=== PATIENT | female | born 1950 | race Caucasian/White ===

== ENCOUNTER → 2019-09-05 14:21 | Outpatient (BNVA) | payer MEDICARE, OTHER, SELFPAY | PROVIDERS: Family Provider Family Medicine; PCP Family Medicine; Visit Provider Specialist | DX: G43.711 Chronic migraine without aura, intractable, with status migrainosus (principal) | CPT/HCPCS: 64615; J0585 ==

== ENCOUNTER → 2019-10-03 11:05 | Outpatient (BNVA) | payer MEDICARE, OTHER, SELFPAY | PROVIDERS: Family Provider Family Medicine; PCP Family Medicine; Referring Provider Family Medicine; Visit Provider Podiatrist Foot & Ankle Surgery | DX: M79.671 Pain in right foot (principal); M21.611 Bunion of right foot | CPT/HCPCS: 73630; L3031 ==

== ENCOUNTER 2019-10-03 12:03 | Outpatient (CLI) | payer MEDICARE, OTHER, SELFPAY | END 2019-10-03 12:04 | disposition home or self-care (01) | LOC: SPT 12:04 | PROVIDERS: Family Provider Family Medicine; Visit Provider Podiatrist Foot & Ankle Surgery | DX: Z46.89 Encounter for fitting and adjustment of other specified devices (principal); S92.411D Displaced fracture of proximal phalanx of right great toe, subsequent encounter for fracture with routine healing; X58.XXXD Exposure to other specified factors, subsequent encounter | CPT/HCPCS: L3031 ==

== ENCOUNTER 2019-10-17 12:17 | Outpatient (CLI) | payer MEDICARE, OTHER, SELFPAY ==
--- NOTE | 2019-10-17 13:30 | USCV_ITS ---
Lilo Adame Age: 68 Gender: F : 1950 Exam Date: 10/17/2019 12:58 Ordering Phys: Eric Suarez MD ([email or web address]) Technologist: Rosaura Rollins Exam Location: [facility] [place] Indication: NONISHEMIC CARDIOMYOPATHY WITH CHF BP: / HR: 80 Rhythm: Sinus Technical Quality: Adequate MEASUREMENTS (Male / Female) Normal Values 2D ECHO LV Diastolic Diameter PLAX 6.4 cm 4.2 - 5.9 / 3.9 - 5.3 cm LV Systolic Diameter PLAX 5.5 cm LV Chamber Size 5.3 cm IVS Diastolic Thickness 0.9 cm 0.6 - 1.0 / 0.6 - 0.9 cm IVS Systolic Thickness 1.2 cm LVPW Diastolic Thickness 1.2 cm 0.6 - 1.0 / 0.6 - 0.9 cm LVPW Systolic Thickness 1.3 cm RV Chamber Size 2.7 cm LVOT Diameter 2.0 cm LV Ejection Fraction 2D Teich 29.2 % LV Ejection Fraction MOD 2C -8.6 % LV Ejection Fraction 2C AL -12.0 % LA Diameter 4.3 cm LA Width 3.5 cm LA Height 4.2 cm RA Width 4.2 cm RA Height 3.1 cm Aorta at Sinotubular Diameter 3.5 cm M-MODE LV Diastolic Diameter MM 6.6 cm 4.2 - 5.9 / 3.9 - 5.3 cm LV Systolic Diameter MM 4.9 cm LV Ejection Fraction MM Teich 50.0 % IVS Diastolic Thickness MM 1.1 cm 0.6 - 1.0 / 0.6 - 0.9 cm IVS Systolic Thickness MM 1.1 cm LVPW Diastolic Thickness MM 0.9 cm 0.6 - 1.0 / 0.6 - 0.9 cm LVPW Systolic Thickness MM 1.4 cm RV Diastolic Diameter MM 1.9 cm Aortic Annulus Diameter 3.6 cm LA Ao Ratio MM 1.2 MV E Point Septal Separation 1.7 cm DOPPLER AV Peak Velocity 84.0 cm/s LVOT Peak Velocity 58.0 cm/s AV Area Cont Eq vti 2.2 cm squared AV Area Cont Eq pk 2.2 cm squared MV Area PHT 5.6 cm squared Mitral E to A Ratio 1.7 MV E' Velocity 5.0 cm/s Mitral E to MV E' Ratio 16.4 Mitral E to LV E' Lateral Ratio 18.2 Mitral E to LV E' Septal Ratio 15.2 TR Peak Velocity 240.4 cm/s TR Peak Gradient 23.1 mmHg TR Mean Velocity 187.1 cm/s TR Mean Gradient 15.5 mmHg TR Velocity Time Integral 78.7 cm TV Peak E Velocity 69.0 cm/s Right Atrial Pressure 3.0 mmHg Pulmonary Artery Systolic Pressu 26.1 mmHg PV Peak Velocity 40.0 cm/s RV Acceleration Time 0.1 s RV Ejection Time 0.2 s RV AcT/ET 0.5 FINDINGS Left Ventricle Severely increased left ventricular cavity size. Normal left ventricular wall thickness. Severely decreased left ventricular systolic function. Global left ventricular hypokinesis. Grade II/IV diastolic dysfunction, moderately elevated filling pressures. Left ventricular ejection fraction is estimated at 15-20 %. Right Ventricle Normal right ventricular size and systolic function. Normal right ventricular systolic pressure. Right Atrium The right atrium is normal in size. Left Atrium Severely increased left atrial size. Mitral Valve Structurally normal mitral valve. There is at least moderate mitral regurgitation. Aortic Valve Structurally normal aortic valve without significant sclerosis or stenosis. There is no aortic regurgitation. Tricuspid Valve Structurally normal tricuspid valve. Trace to mild tricuspid valve regurgitation. Pulmonic Valve Pulmonic valve not well visualized. Pericardium Normal pericardium without effusion. Aorta Normal ascending aorta dimension. CONCLUSIONS Severely increased left ventricular cavity size. Normal left ventricular wall thickness. Severely decreased left ventricular systolic function. Global left ventricular hypokinesis. Grade II/IV diastolic dysfunction, moderately elevated filling pressures. Left ventricular ejection fraction is estimated at 15-20 %. Severely increased left atrial size. Structurally normal mitral valve. There is at least moderate mitral regurgitation. Dr. Eric Suarez MD (Electronically Signed) Final Date: 17 October 2019 15:29 S
== END 2019-10-17 12:18 | disposition home or self-care (01) ==
LOC: US 12:18
PROVIDERS: Family Provider Family Medicine; Visit Provider Internal Medicine Cardiovascular Disease
DX: I42.8 Other cardiomyopathies (principal); I51.7 Cardiomegaly; I34.0 Nonrheumatic mitral (valve) insufficiency
CPT/HCPCS: 93306

== ENCOUNTER → 2019-11-28 13:51 | Outpatient (BNVA) | payer MEDICARE, OTHER, SELFPAY | PROVIDERS: Family Provider Family Medicine; Visit Provider Specialist | DX: G43.711 Chronic migraine without aura, intractable, with status migrainosus (principal) | CPT/HCPCS: 64615; J0585 ==

== ENCOUNTER 2019-12-25 11:56 | Outpatient (CLI) | payer MEDICARE, OTHER, SELFPAY ==
--- NOTE | 2019-12-25 12:45 | USCV_ITS ---
Lilo Adame Age: 68 Gender: F : 1950 Exam Date: 12/25/2019 12:06 Ordering Phys: Eric Suarez MD ([email or web address]) Technologist: Rosaura Rollins [place]am [place] [facility] [place] Indication: ECHO F/U CARDIOMYOPATHY BP: / HR: 85 Rhythm: Sinus Technical Quality: Good MEASUREMENTS (Male / Female) Normal Values 2D ECHO LV Diastolic Diameter PLAX 6.1 cm 4.2 - 5.9 / 3.9 - 5.3 cm LV Systolic Diameter PLAX 5.3 cm LV Chamber Size 4.0 cm IVS Diastolic Thickness 1.2 cm 0.6 - 1.0 / 0.6 - 0.9 cm IVS Systolic Thickness 6.5 cm LVPW Diastolic Thickness 1.2 cm 0.6 - 1.0 / 0.6 - 0.9 cm LVPW Systolic Thickness 1.4 cm RV Chamber Size 2.9 cm LVOT Diameter 2.1 cm LV Ejection Fraction 2D Teich 29.7 % LV Ejection Fraction MOD 2C 52.9 % LV Ejection Fraction 2C AL 54.9 % LA Diameter 2.4 cm LA Width 3.4 cm LA Height 3.2 cm RA Width 3.2 cm RA Height 3.2 cm Aorta at Sinotubular Diameter 2.5 cm M-MODE LV Diastolic Diameter MM 6.1 cm 4.2 - 5.9 / 3.9 - 5.3 cm LV Systolic Diameter MM 5.0 cm LV Ejection Fraction MM Teich 36.0 % IVS Diastolic Thickness MM 1.2 cm 0.6 - 1.0 / 0.6 - 0.9 cm IVS Systolic Thickness MM 1.2 cm LVPW Diastolic Thickness MM 1.1 cm 0.6 - 1.0 / 0.6 - 0.9 cm LVPW Systolic Thickness MM 1.5 cm RV Diastolic Diameter MM 2.1 cm Aortic Annulus Diameter 3.5 cm LA Ao Ratio MM 0.7 MV E Point Septal Separation 2.0 cm FINDINGS Left Ventricle This is a 2-dimensional exam only to follow-up on a cardiomyopathy. The ventricle is moderately to severely enlarged. Wall thickness is normal. There is global hypokinesis with an ejection fraction of 10 to 15%. No obvious wall motion disturbances. Doppler exam not completed. Right Ventricle Normal right ventricular size and systolic function. Right Atrium The right atrium is normal in size. Left Atrium The left atrium is normal in size. Mitral Valve Structurally normal mitral valve. Aortic Valve Structurally normal trileaflet aortic valve. Tricuspid Valve Structurally normal tricuspid valve. Pulmonic Valve Pulmonic valve not well visualized. Pericardium Normal pericardium without effusion. Aorta Normal ascending aorta dimension. CONCLUSIONS This is a 2-dimensional exam only to follow-up on a cardiomyopathy. The ventricle is moderately to severely enlarged. Wall thickness is normal. There is global hypokinesis with an ejection fraction of 10 to 15%. No obvious wall motion disturbances. Doppler exam not completed. When compared to the previous exam done here in October and another examination done at an outside hospital 3 months ago there has been no change. Dr. Eric Suarez MD (Electronically Signed) Final Date: 25 December 2019 16:38 S
== END 2019-12-25 11:57 | disposition home or self-care (01) ==
LOC: US 11:57
PROVIDERS: PCP Family Medicine; Visit Provider Internal Medicine Cardiovascular Disease
DX: I42.9 Cardiomyopathy, unspecified (principal); I51.7 Cardiomegaly
CPT/HCPCS: 93308

== ENCOUNTER 2020-02-08 16:46 | Emergency (ER) | payer MEDICARE, OTHER, SELFPAY ==
[2020-02-08 16:52] VITALS: BP 108/70; PULSE 85; RESP 18; TEMP 36.7; O2SAT 96; BMI 20.3
--- NOTE | 2020-02-08 17:32 | ED_ITS ---
HPI - Dizziness General: Chief Complaint: Dizziness Stated Complaint: dizzy, ams, falls Time Seen by Provider: 02/08/20 17:32 History of Present Illness: Associated symptoms: Denies chest pain, chills, headache(s), nausea, nasal congestion, palpitations or vomiting Associated neuro symptoms: Deny numbness in extremities Review of Systems Const: Denies: fever(s), chills or fatigue Eyes: Denies: change in vision or eye discomfort ENMT: Denies: throat pain, odynophagia, nasal discharge or nasal congestion Card: Denies: chest pain, palpitations, edema, swelling of feet/ankles, dyspnea on exertion or orthopnea Resp: Denies: dyspnea, productive cough or non-productive cough GI: Denies: abdominal pain, nausea, vomiting, diarrhea, constipation or hematochezia : Denies: flank pain, dysuria or hematuria Musc: Denies: neck pain, back pain or extremity swelling Skin/Breast: Denies: rash or new lesions Neuro: Denies: headache(s), numbness in extremities or weakness in extremities PFSH ED PFSH: Medical History Anxiety CHF (congestive heart failure) Chronic migraine without aura, intractable, with status migrainosus Depression Hx of fracture of humerus Hx of head injury Non-ischemic cardiomyopathy Osteoarthritis PTSD (post-traumatic stress disorder) Surgical History History of appendectomy History of breast augmentation History of hysterectomy History of tonsillectomy Family History Other Acute depression Cancer Chronic migraine without aura, intractable, with status migrainosus Stroke Social History Smoking and tobacco status: never smoked History of recent travel: No Physical Exam Const: COMMON NORMALS: patient oriented x3 HENMT: COMMON NORMALS: normocephalic HEAD & SCALP: normocephalic MOUTH: Normal oral and palatal mucosa present THROAT: posterior oropharynx normal and uvula midline Neck/C-Spine: COMMON NORMALS: supple GENERAL: Yes normal visual inspection Resp: COMMON NORMALS: normal respiratory effort, No retractions, No use of accessory muscles and clear to auscultation bilaterally AUSCULTATION: clear to auscultation bilaterally Cardio: COMMON NORMALS: regular rate, regular rhythm, S1 normal heart sound present, S2 normal heart sound present, No gallops present (Cardio), No clicks present (Cardio), No murmurs present (Cardio) and Peripheral pulses 2+ throughout RATE: regular rate RHYTHM: regular rhythm HEART SOUNDS: S1 normal heart sound present and S2 normal heart sound present PERIPHERAL PULSES: Peripheral pulses 2+ throughout GI: COMMON NORMALS: Normal to inspection, nondistended, normoactive bowel sounds present, Soft to palpation, non-tender and no masses PALPATION: Yes Soft to palpation : COMMON NORMALS: Yes no CVA tenderness BLADDER/KIDNEY EXAM: Yes no CVA tenderness Back/Pelvis: COMMON NORMALS: no CVA tenderness Neuro: COMMON NORMALS: patient oriented x3, CN's II-XII intact bilaterally, moves all extremities, no focal motor deficits and no sensory deficits noted SENSORY EXAM: Yes extremities (intact) MOTOR EXAM: 5/5 motor strength present throughout Course Vital Signs: Vital signs: Vital Signs Temperature 98.0 F 02/08/20 16:52 Pulse Rate 85 02/08/20 16:52 Respiratory Rate 18 02/08/20 16:52 Blood Pressure 108/70 02/08/20 16:52 Pulse Oximetry 96 02/08/20 16:52 Discharge Plan Discharge Prescriptions: No Action (DME) Carbon fiber Yes Qty: 1 RF: 0 potassium chloride 10 mEq capsule, extended release 10 meq PO BID Qty: 60 RF: 3 amitriptyline 25 mg tablet 25 mg PO DAILY RF: 0 promethazine 12.5 mg tablet 12.5 mg PO Q6H PRNRF: 0 sumatriptan succinate 100 mg tablet 100 mg PO Q2H PRNRF: 0 losartan 25 mg tablet 25 mg PO DAILY RF: 0 omeprazole 20 mg tablet,delayed release (DR/EC) 20 mg PO DAILY RF: 0 lorazepam 0.5 mg tablet 0.5 mg PO DAILY PRNRF: 0 cyclobenzaprine 10 mg tablet 10 mg PO BID RF: 0 bupropion HCl 300 mg tablet extended release 24 hr 300 mg PO QAM RF: 0 escitalopram oxalate 20 mg tablet 10 mg PO DAILY RF: 0 carvedilol 6.25 mg tablet 6.25 mg PO BID RF: 0 furosemide 40 mg tablet 40 mg PO BID Qty: 60 RF: 4 Coding Level of Care Code ED [employer] Department Chair for Filomena Mas
--- NOTE | 2020-02-08 17:35 | CTR_ITS ---
PROCEDURE INFORMATION: Exam: CT Head Without Contrast Exam date and time: 02/08/2020 5:53 PM Age: 69 years old Clinical indication: Altered mental status/memory loss and dizziness; Confusion or disorientation; Patient HX: 9 days S/P defib placement C/O dizziness and AMS since; Additional info: Confusion and AMS TECHNIQUE: Imaging protocol: Computed tomography of the head without contrast. Radiation optimization: All CT scans at this facility use at least one of these dose optimization techniques: automated exposure control; mA and/or kV adjustment per patient size (includes targeted exams where dose is matched to clinical indication); or iterative reconstruction. COMPARISON: No relevant prior studies available. RADIATION DOSE METRICS: Total DLP (mGy-cm): 669.15 FINDINGS: Brain: There is volume loss and periventricular low density compatible with chronic small vessel disease changes. There is no acute hemorrhage, edema or mass effect. Ventricles: Normal. No ventriculomegaly. Bones/joints: Unremarkable. No acute fracture. Sinuses: There is mild mucosal thickening in the sinuses. Mastoid air cells: Visualized mastoid air cells are well aerated. Soft tissues: Unremarkable. CT/CT head wo con* [id number] IMPRESSION: No acute intracranial abnormality. Radiation Dose CTDIVOL = (mGy): DLP = 669.15 (mGy-cm)
--- NOTE | 2020-02-08 17:36 | ECG_ITS ---
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 Measurements Intervals [place] Rate: 82 P: -26 MS: 121 QRS: 87 QRSD: 117 T: 213 QT: 400 QTc: 467 Interpretive Statements ELECTRONIC VENTRICULAR PACEMAKER ABNORMAL RHYTHM ECG No previous ECG available for comparison Electronically Signed On 02-08-2020 20:45:11 CDT by Howard Arango M.D. [email or web address]
--- NOTE | 2020-02-08 17:37 | XRR_ITS ---
PROCEDURE INFORMATION: Exam: XR Chest, 1 View Exam date and time: 02/08/2020 5:38 PM Age: 69 years old Clinical indication: Dyspnea; Prior surgery; Surgery date: 3-7 days post-operative; Surgery type: Defibrilator; Additional info: Dizziness with pmh heart failure TECHNIQUE: Imaging protocol: XR of the chest Views: 1 view. COMPARISON: No relevant prior studies available. FINDINGS: Lungs: The lungs are otherwise clear Pleural space: Unremarkable. No pleural effusion. No pneumothorax. Heart/Mediastinum: Unremarkable. No cardiomegaly. Bones/joints: Chronic deformity proximal shaft of the right humerus Soft tissues: Cardiac defibrillator left anterior chest Bilateral breast implants are seen. XR/XR chest 1V portable [id number] IMPRESSION: 1. Negative for acute abnormality. 2. Cardiac defibrillator left chest 3. Bilateral breast implants 4. Chronic bone deformity proximal right humerus
--- NOTE | 2020-02-08 17:39 | W.ED.DIZZY ---
HPI - Dizziness General: Chief Complaint: Dizziness Stated Complaint: dizzy, ams, falls Time Seen by Provider: 02/08/20 17:32 History of Present Illness: HPI Narrative: Patient is a 69-year-old female who comes to the ED with dizziness, confusion and weakness. Patient has a past medical history of heart failure and head defibrillator placed 9 days ago. In the last 2 to 3 days she reports having increased generalized weakness, dizziness/balance problems and confusion. Patient also reports having very dry mouth and states she just had her diuretic medication dose increased. Patient started increasing her furosemide dose within the past month due to fluid retention and shortness of breath. Symptoms were worse when she was laying flat. Patient says her shortness of breath has improved since the increased furosemide dose. She describes having some pain in the right side of neck and jaw over the past couple days but today and while here in the ED, she does not currently have that pain. Patient's recent confusion is described as being forgetful her short-term memory has has been poor over the past 3 to 5 days. Denies any fever, chills, chest pain, abdominal pain, vomiting, bowel symptoms or dysuria or hematuria. Patient does endorse having some increased time to get stream of urine started. Denies any pain when urinating, increased frequency or bladder pain. Dizziness/balance issues have started in the past week as well and she states she feels like she has to hold onto the counter/lin furniture in the house as she ambulates to help keep her steady. Associated symptoms: Denies chest pain, chills, headache(s), nausea, nasal congestion, palpitations or vomiting Associated neuro symptoms: Reports confusion (Short-term memory poor.); Deny numbness in extremities Review of Systems Const: Reports: fatigue (Generalized weakness); Denies: fever(s) or chills Eyes: Denies: change in vision or eye discomfort ENMT: Denies: throat pain, odynophagia, nasal discharge or nasal congestion Card: Reports: orthopnea (Ms. symptom has improved over the past couple weeks since furosemide dose increased.); Denies: chest pain, palpitations, edema, swelling of feet/ankles or dyspnea on exertion Resp: Denies: dyspnea, productive cough, non-productive cough or wheezing GI: Denies: abdominal pain, nausea, vomiting, diarrhea, constipation or hematochezia : Denies: flank pain, dysuria or hematuria Musc: Denies: neck pain, back pain or extremity swelling Skin/Breast: Denies: rash or new lesions Neuro: Reports: dizziness and confusion (Short-term memory poor.); Denies: headache(s), numbness in extremities or weakness in extremities PFSH ED PFSH: Medical History Anxiety CHF (congestive heart failure) Chronic migraine without aura, intractable, with status migrainosus Depression Hx of fracture of humerus Hx of head injury Non-ischemic cardiomyopathy Osteoarthritis PTSD (post-traumatic stress disorder) Surgical History History of appendectomy History of breast augmentation History of hysterectomy History of tonsillectomy Family History Other Acute depression Cancer Chronic migraine without aura, intractable, with status migrainosus Stroke Social History Smoking and tobacco status: never smoked History of recent travel: No Physical Exam Const: COMMON NORMALS: no acute distress, patient oriented x3, healthy appearing and alert GENERAL APPEARANCE: cooperative and comfortable HENMT: COMMON NORMALS: normocephalic HEAD & SCALP: normocephalic MOUTH: Normal oral and palatal mucosa present THROAT: posterior oropharynx normal and uvula midline Neck/C-Spine: COMMON NORMALS: supple GENERAL: Yes normal visual inspection Resp: COMMON NORMALS: normal respiratory effort, No retractions, No use of accessory muscles and clear to auscultation bilaterally AUSCULTATION: clear to auscultation bilaterally Cardio: COMMON NORMALS: regular rate, regular rhythm, S1 normal heart sound present, S2 normal heart sound present, No gallops present (Cardio), No clicks present (Cardio), No murmurs present (Cardio) and Peripheral pulses 2+ throughout RATE: regular rate RHYTHM: regular rhythm HEART SOUNDS: S1 normal heart sound present and S2 normal heart sound present PERIPHERAL PULSES: Peripheral pulses 2+ throughout GI: COMMON NORMALS: Normal to inspection, nondistended, normoactive bowel sounds present, Soft to palpation, non-tender and no masses PALPATION: Yes Soft to palpation : COMMON NORMALS: Yes no CVA tenderness BLADDER/KIDNEY EXAM: Yes no CVA tenderness Back/Pelvis: COMMON NORMALS: no CVA tenderness Extremity: COMMON NORMALS: normal to inspection and no pedal edema Neuro: COMMON NORMALS: patient oriented x3, moves all extremities, no focal motor deficits and no sensory deficits noted SENSORIUM/ORIENTATION: Yes alert SPEECH: speech normal GAIT: Yes Normal gait present Skin: COMMON NORMALS: no rashes or lesions noted GENERAL SKIN EXAM: no rashes or lesions noted and dry skin Course Vital Signs: Vital signs: Vital Signs Temperature 98.0 F 02/08/20 16:52 Pulse Rate 82 02/08/20 21:16 Respiratory Rate 20 H 02/08/20 21:16 Blood Pressure 114/77 02/08/20 21:16 Pulse Oximetry 95 02/08/20 21:16 MDM - Dizziness MDM Narrative: Medical decision making narrative: Patient is a 69-year-old female comes to the ED with dizziness, generalized weakness and confusion. Past medical history of heart failure and a recent defibrillator placed 9 days ago. Patient's medical records from [facility] were sent over to the ED and reviewed. Patient was just recently given an increased dose of furosemide to help with fluid retention. Physical exam showed a healthy 69-year-old female in no acute distress or pain. She was alert and oriented x3 showed no signs of confusion. No edema present. CT of the head showed no acute findings. Troponins negative, EKG showed some old T wave changes but nothing acute. BNP 9446, creatinine 1.4 and her previous creatinine at [facility] was 1.14. Rest of CMP and UA were unremarkable. Chest x-ray showed no acute findings. Patient stated that all of her symptoms have went away and resolved while here in the ED. Patient was discharged and told to continue taking all home medications as previously prescribed. She was also told to stay hydrated while being on these increased furosemide dose. She has a planned appointment with her master technician on February 17. Return to ED precautions given to patient. Patient understood and agreed with plan. I discussed patient case with Dr. Kate and she agreed with plan. Lab Data: Attestation: I reviewed the patient's lab results. Labs: Lab Results 02/08/20 02/08/20 02/08/20 Range/Units 17:12 17:54 17:54 WBC 5.9 (4.0-10.0) 10^3/ uL RBC 3.67 L (4.1-5.3) 10^6/u L Hgb 11.0 L (11.5-15.3) g/dL Hct 35.7 L (37.0-47.0) % MCV 97.3 (81-99) fL MCH 30.0 (28.0-34.0) pg MCHC 30.8 (30.0-36.0) g/dL RDW 13.5 (12.1-15.1) % Plt Count 237 (130-400) 10^3/c mm MPV 10.5 H (7.4-10.4) fL Neut % (Auto) 61.5 % Lymph % (Auto) 23.0 % [place] % (Auto) 12.3 % Eos % (Auto) 2.2 % Baso % (Auto) 0.7 % Neut # (Auto) 3.60 (1.8-7.7) 10^3/u L Lymph # (Auto) 1.4 (0.8-4.8) 10^3/u L [place] # (Auto) 0.7 (0.2-0.9) 10^3/u L Eos # (Auto) 0.1 (0.0-0.8) 10^3/u L Baso # (Auto) 0.0 (0.0-0.1) 10^3/u L Nucleated RBC % (a uto) 0 % Nucleated RBCs # 0.0 /100WBC Sodium 145 (136-145) mmol/L Potassium 3.3 L (3.5-5.1) mmol/L Chloride 102 (98-107) mmol/L Carbon Dioxide 30 H (22-29) mmol/L Anion Gap 16.3 (5-19) BUN 20 (8-23) mg/dL Creatinine 1.4 H (0.5-0.9) mg/dL GFR Calculation 37.3 L (90-130) mL/min Glucose 116 H (65-115) mg/dL Calculated Osmolal ity 298 H (285-295) mOsm/k g Calcium 9.1 (8.5-10.5) mg/dL Total Bilirubin 0.3 (0.15-1.2) mg/dL AST 14 (0-32) U/L ALT 12 (0-33) U/L Alkaline Phosphata se 76 (35-105) IU/L Troponin T Baselin e (0-10) ng/L Troponin T 120 Min [place] (0-10) ng/L Delta Troponin T (0-10) ABS# NT-Pro-B Natriuret Pep 9446 H (0-125) pg/mL Total Protein 7.5 (6.6-8.7) g/dL Albumin 4.5 (3.5-5.2) g/dL Globulin 3.0 (1.3-4.6) g/dL Urine Color Yellow (Yellow) Urine Appearance Sl hazy (CLEAR) Urine pH 5 (5-7) Ur Specific Gravit y 1.025 (1.005-1.030) Urine Protein Neg (Negative) Urine Glucose (UA) Norm (Normal) Urine Ketones Negative (Negative) Urine Blood Neg (Negative) Urine Nitrate Negative (Negative) Urine Bilirubin Neg (NEGATIVE) Urine Urobilinogen 1 H (Negative) mg/dL Ur Leukocyte Daysi ase 1+ H (Negative) Urine RBC None (0-2) /hpf Urine WBC 15-25 H (0-5) /hpf Ur Squamous Epith Cells Rare (0-5) Amorphous Sediment Not Reportable Urine Bacteria 2+ H (NONE) Hyaline Casts 25-40 H Urine Mucus 1+ 02/08/20 02/08/20 Range/Units 17:54 19:50 WBC (4.0-10.0) 10^3/ uL RBC (4.1-5.3) 10^6/u L Hgb (11.5-15.3) g/dL Hct (37.0-47.0) % MCV (81-99) fL MCH (28.0-34.0) pg MCHC (30.0-36.0) g/dL RDW (12.1-15.1) % Plt Count (130-400) 10^3/c mm MPV (7.4-10.4) fL Neut % (Auto) % Lymph % (Auto) % [place] % (Auto) % Eos % (Auto) % Baso % (Auto) % Neut # (Auto) (1.8-7.7) 10^3/u L Lymph # (Auto) (0.8-4.8) 10^3/u L [place] # (Auto) (0.2-0.9) 10^3/u L Eos # (Auto) (0.0-0.8) 10^3/u L Baso # (Auto) (0.0-0.1) 10^3/u L Nucleated RBC % (a uto) % Nucleated RBCs # /100WBC Sodium (136-145) mmol/L Potassium (3.5-5.1) mmol/L Chloride (98-107) mmol/L Carbon Dioxide (22-29) mmol/L Anion Gap (5-19) BUN (8-23) mg/dL Creatinine (0.5-0.9) mg/dL GFR Calculation (90-130) mL/min Glucose (65-115) mg/dL Calculated Osmolal ity (285-295) mOsm/k g Calcium (8.5-10.5) mg/dL Total Bilirubin (0.15-1.2) mg/dL AST (0-32) U/L ALT (0-33) U/L Alkaline Phosphata se (35-105) IU/L Troponin T Baselin e 18 H (0-10) ng/L Troponin T 120 Min [place] 15.03 H (0-10) ng/L Delta Troponin T -2.97 L (0-10) ABS# NT-Pro-B Natriuret Pep (0-125) pg/mL Total Protein (6.6-8.7) g/dL Albumin (3.5-5.2) g/dL Globulin (1.3-4.6) g/dL Urine Color (Yellow) Urine Appearance (CLEAR) Urine pH (5-7) Ur Specific Gravit y (1.005-1.030) Urine Protein (Negative) Urine Glucose (UA) (Normal) Urine Ketones (Negative) Urine Blood (Negative) Urine Nitrate (Negative) Urine Bilirubin (NEGATIVE) Urine Urobilinogen (Negative) mg/dL Ur Leukocyte Daysi ase (Negative) Urine RBC (0-2) /hpf Urine WBC (0-5) /hpf Ur Squamous Epith Cells (0-5) Amorphous Sediment Urine Bacteria (NONE) Hyaline Casts Urine Mucus Imaging Data^: CXR: Attestation: I personally reviewed and interpreted this imaging study as follows: Radiologist's impression: [place] [address] XRay Report Signed Patient: Lilo Adame Unit #: [id number] : 1950 Age/Sex: 69 / F ADM Date: 02/08/20 Loc: ER Room/Bed: Attending Dr: Ordering Provider/Ordering MD: Bhavesh Nguyen Date of Service: 02/08/20 Procedure(s): XR chest 1V portable [id number] Accession Number(s): [id number] Report Number: [id number] PROCEDURE INFORMATION: Exam: XR Chest, 1 View Exam date and time: 02/08/2020 5:38 PM Age: 69 years old Clinical indication: Dyspnea; Prior surgery; Surgery date: 3-7 days post-operative; Surgery type: Defibrilator; Additional info: Dizziness with pmh heart failure TECHNIQUE: Imaging protocol: XR of the chest Views: 1 view. COMPARISON: No relevant prior studies available. FINDINGS: Lungs: The lungs are otherwise clear Pleural space: Unremarkable. No pleural effusion. No pneumothorax. Heart/Mediastinum: Unremarkable. No cardiomegaly. Bones/joints: Chronic deformity proximal shaft of the right humerus Soft tissues: Cardiac defibrillator left anterior chest Bilateral breast implants are seen. XR/XR chest 1V portable [id number] IMPRESSION: 1. Negative for acute abnormality. 2. Cardiac defibrillator left chest 3. Bilateral breast implants 4. Chronic bone deformity proximal right humerus Dictated By: Arthur Hall Signed By: Arthur Hall Signed Date/Time: 02/08/20 1820 DD/ 1818 CT Head: Attestation: I personally reviewed and interpreted this imaging study as follows: Radiologist's impression: [address] [place] [address] CT Scan Report Signed Patient: Lilo Adame Unit #: [id number] : 1950 Age/Sex: 69 / F ADM Date: 02/08/20 Loc: ER Room/Bed: Attending Dr: Ordering Provider/Ordering MD: Bhavesh Nguyen Date of Service: 02/08/20 Procedure(s): CT head wo con* [id number] Accession Number(s): [id number] Report Number: [id number] PROCEDURE INFORMATION: Exam: CT Head Without Contrast Exam date and time: 02/08/2020 5:53 PM Age: 69 years old Clinical indication: Altered mental status/memory loss and dizziness; Confusion or disorientation; Patient HX: 9 days S/P defib placement C/O dizziness and AMS since; Additional info: Confusion and AMS TECHNIQUE: Imaging protocol: Computed tomography of the head without contrast. Radiation optimization: All CT scans at this facility use at least one of these dose optimization techniques: automated exposure control; mA and/or kV adjustment per patient size (includes targeted exams where dose is matched to clinical indication); or iterative reconstruction. COMPARISON: No relevant prior studies available. RADIATION DOSE METRICS: Total DLP (mGy-cm): 669.15 FINDINGS: Brain: There is volume loss and periventricular low density compatible with chronic small vessel disease changes. There is no acute hemorrhage, edema or mass effect. Ventricles: Normal. No ventriculomegaly. Bones/joints: Unremarkable. No acute fracture. Sinuses: There is mild mucosal thickening in the sinuses. Mastoid air cells: Visualized mastoid air cells are well aerated. Soft tissues: Unremarkable. CT/CT head wo con* [id number] IMPRESSION: No acute intracranial abnormality. Radiation Dose CTDIVOL = (mGy): DLP = 669.15 (mGy-cm) Dictated By: Floridalma Ramirez Signed By: Floridalma Ramirez Signed Date/Time: 02/08/201821 DD/ 20 Discharge Plan Discharge Patient Disposition: Home Clinical Impression: CHF (congestive heart failure) Qualifiers: Heart failure type: systolic Heart failure chronicity: chronic Qualified Code(s): I50.22 - Chronic systolic (congestive) heart failure Condition: Stable Prescriptions: No Action (DME) Carbon fiber Yes Qty: 1 RF: 0 potassium chloride 10 mEq capsule, extended release 10 meq PO BID Qty: 60 RF: 3 amitriptyline 25 mg tablet 25 mg PO DAILY PRN (Reason: unknown) RF: 0 promethazine 12.5 mg tablet 12.5 mg PO Q6H PRN (Reason: Nausea) RF: 0 sumatriptan succinate 100 mg tablet 100 mg PO PRN RF: 0 losartan 25 mg tablet 25 mg PO DAILY RF: 0 omeprazole 20 mg tablet,delayed release (DR/EC) 20 mg PO DAILY RF: 0 lorazepam 0.5 mg tablet 0.5 mg PO PRN RF: 0 cyclobenzaprine 10 mg tablet 10 mg PO TID PRN (Reason: unknown) RF: 0 bupropion HCl 300 mg tablet extended release 24 hr 300 mg PO QAM RF: 0 escitalopram oxalate 20 mg tablet 20 mg PO DAILY RF: 0 carvedilol 6.25 mg tablet 6.25 mg PO BID RF: 0 furosemide 40 mg tablet 40 mg PO BID Qty: 60 RF: 4 Tylenol Extra Strength 500 mg Tablet 1,500 mg PO PRN RF: 0 Calcium 600 + D(3) 600 mg calcium- 200 unit Capsule 1 cap PO BID RF: 0 Discharge Orders: Discharge Order (Routine); Ordered 02/08/20 Ordered By: Bhavesh Nguyen Referrals: Grant Barger [Primary Care Provider] - Discharge Diet: Regular Discharge Activity: Increase activity as tolerated Patient Instructions: Heart Failure (ED) Activity Restrictions/Additional Instructions: Follow-up with medical provider at next scheduled apptment on Feb 17. Continue taking all home medications as prescribed. Make sure you are still drinking plenty of fluids throughout the day and monitoring your symptoms and weights daily. Return to the ER or your medical provider if condition worsens. Please read and understand discharge instructions. If any questions, please ask. Discharge Date/Time: 02/08/20 21:17 Coding Level of Care Code ED Fructose Loader for Filomena Fwd Exam Comprehensive
[2020-02-08 17:56] LABS: Add Urine Microscopic? YES; Bilirubin Urine Neg (NEGATIVE); Blood Urine Neg (Negative); Glucose Urine UA Norm (Normal); Ketones Urine Negative (Negative); Leukocyte Esterase Urine 1+ (Negative); Nitrate Urine Negative (Negative); Protein Urine Neg (Negative); Specific Gravity, Urine 1.025 (1.005-1.030); Urine Appearance SL Hazy (CLEAR); Urine Color Yellow (Yellow); Urobilinogen Urine 1 mg/dL (Negative); pH Urine 5 (5-7)
[2020-02-08 17:57] LABS: WBC Urine 15-25 /hpf (0-5)
[2020-02-08 17:58] LABS: Add Urine Culture? Yes; Bacteria Urine 2+; Hyaline Casts Urine 25-40; Mucus Urine 1+; Squamous Epithelial Cell Urine RARE (0-5)
[2020-02-08 18:08] LABS: Basophils % 0.7 %; Eosinophils # 0.1 10^3/uL (0.0-0.8); Eosinophils % 2.2 %; Hematocrit 35.7 % (37.0-47.0); Lymphocytes # 1.4 10^3/uL (0.8-4.8); Mean Corpuscular HGB Conc 30.8 g/dL (30.0-36.0); Mean Corpuscular Volume 97.3 fL (81-99); Mean Platelet Volume 10.5 fL (7.4-10.4); Monocytes # 0.7 10^3/uL (0.2-0.9); Monocytes % 12.3 %; Neutrophils % 61.5 %; Nucleated Red Blood Cells % 0 %; Platelet Count 237 10^3/cmm (130-400); Red Blood Count 3.67 10^6/uL (4.1-5.3); Red Cell Distribution Width 13.5 % (12.1-15.1); White Blood Count 5.9 10^3/uL (4.0-10.0)
[2020-02-08 18:12] VITALS: BP 115/66; PULSE 88; RESP 18; O2SAT 98
[2020-02-08 18:34] LABS: Troponin(5th) Baseline 18 ng/L (0-10)
[2020-02-08 18:41] LABS: Alanine Aminotransferase 12 U/L (0-33); Albumin Level 4.5 g/dL (3.5-5.2); Alkaline Phosphatase 76 IU/L (35-105); Anion Gap 16.3 (5-19); Aspartate Amino Transferase 14 U/L (0-32); Blood Urea Nitrogen 20 mg/dL (8-23); Calcium 9.1 mg/dL (8.5-10.5); Carbon Dioxide 30 mmol/L (22-29); Chloride 102 mmol/L (98-107); Glomerular Filtration Rate 37.3 mL/min (90-130); Glucose 116 mg/dL (65-115); NT Pro B Type Natriuretic Pept 9446 pg/mL (0-125); Osmolality Calculated 298 mOsm/kg (285-295); Potassium 3.3 mmol/L (3.5-5.1); Sodium 145 mmol/L (136-145); Total Bilirubin 0.3 mg/dL (0.15-1.2); Total Protein 7.5 g/dL (6.6-8.7)
[2020-02-08 19:12] VITALS: BP 112/73; PULSE 89; RESP 20; O2SAT 97
--- NOTE | 2020-02-08 19:32 | PC.NURSE ---
EKG done at 1930 and shown to ER physician
--- NOTE | 2020-02-08 19:36 | ECG_ITS ---
[facility] Test Date: 2020-02-08 Pat Name: Lilo Adame Department: Room: Gender: Female [employer] Person: : 1950 Requested By: Bhavesh Nguyen Order Number: [id number] Hair MD: Howard Arango M.D. Measurements Intervals [place] Rate: 82 P: ID: -1 QRS: 91 QRSD: 114 T: 263 QT: 409 QTc: 480 Interpretive Statements ELECTRONIC VENTRICULAR PACEMAKER ABNORMAL RHYTHM ECG Compared to ECG 02/08/2020 18:28:11 No significant changes Electronically Signed On 02-08-2020 20:48:36 CDT by Howard Arango M.D. [id number]
[2020-02-08 20:00] VITALS: PULSE 88
[2020-02-08 20:29] LABS: Troponin 5 2HR 15.03 ng/L (0-10)
[2020-02-08 20:31] LABS: Troponin 5 2HR Delta -2.97 ABS# (0-10)
[2020-02-08 21:00] VITALS: BP 114/77; PULSE 82; RESP 20; O2SAT 95
[2020-02-08 21:16] VITALS: BP 114/77; PULSE 82; RESP 20; O2SAT 95
== END 2020-02-08 21:17 | disposition home or self-care (01) ==
PROVIDERS: Emergency Provider Physician Assistant; PCP Family Medicine
DX: I50.22 Chronic systolic (congestive) heart failure (principal); Z79.899 Other long term (current) drug therapy
CPT/HCPCS: 12345; 36415; 70450; 71045; 80053; 81001; 81003; 83880; 84484; 85025; 87040; 87077; 87086; 87186; 93005; 99282; 99284

== ENCOUNTER → 2020-07-21 13:36 | Outpatient (BNVA) | payer MEDICARE, OTHER, SELFPAY | PROVIDERS: PCP Family Medicine; Visit Provider Specialist | DX: G43.711 Chronic migraine without aura, intractable, with status migrainosus (principal); R41.3 Other amnesia; R26.9 Unspecified abnormalities of gait and mobility; I42.8 Other cardiomyopathies | CPT/HCPCS: 64615; 99214; J0585 ==

== ENCOUNTER 2020-09-10 06:00 | Outpatient (RCR) | payer MEDICARE, OTHER, SELFPAY | END 2020-10-07 23:59 | disposition home or self-care (01) | LOC: SOT 06:00 | PROVIDERS: PCP Family Medicine; Referring Provider Family Medicine; Visit Provider Family Medicine | DX: M62.81 Muscle weakness (generalized) (principal); R26.81 Unsteadiness on feet | CPT/HCPCS: 97167; 97530 ==

== ENCOUNTER → 2020-11-12 14:37 | Outpatient (BNVA) | payer MEDICARE, OTHER, SELFPAY | PROVIDERS: PCP Family Medicine; Visit Provider Specialist | DX: G43.711 Chronic migraine without aura, intractable, with status migrainosus (principal); I50.84 End stage heart failure | CPT/HCPCS: 64615; J0585 ==

== ENCOUNTER → 2021-02-04 11:36 | Outpatient (BNVA) | payer MEDICARE, OTHER, SELFPAY | PROVIDERS: PCP Family Medicine; Visit Provider Specialist | DX: G43.709 Chronic migraine without aura, not intractable, without status migrainosus (principal) | CPT/HCPCS: 64615; J0585 ==

== ENCOUNTER → 2021-04-29 15:06 | Outpatient (BNVA) | payer MEDICARE, OTHER, SELFPAY | PROVIDERS: PCP Family Medicine; Visit Provider Specialist | DX: G43.711 Chronic migraine without aura, intractable, with status migrainosus (principal) | CPT/HCPCS: 64615; J0585 ==

== ENCOUNTER → 2021-07-22 13:28 | Outpatient (BNVA) | payer MEDICARE, OTHER, SELFPAY | PROVIDERS: PCP Family Medicine; Visit Provider Specialist | DX: I50.22 Chronic systolic (congestive) heart failure (principal); I42.8 Other cardiomyopathies; F41.9 Anxiety disorder, unspecified; R63.4 Abnormal weight loss; Z68.1 Body mass index [BMI] 19.9 or less, adult; G43.711 Chronic migraine without aura, intractable, with status migrainosus | CPT/HCPCS: 64615; 99213; 99214; J0585 ==

== ENCOUNTER → 2021-11-25 14:46 | Outpatient (BNVA) | payer MEDICARE, OTHER, SELFPAY | PROVIDERS: PCP Family Medicine; Visit Provider Specialist | DX: G43.711 Chronic migraine without aura, intractable, with status migrainosus (principal) | CPT/HCPCS: 64615; J0585 ==

== ENCOUNTER 2021-12-15 13:58 | Outpatient (CLI) | payer MEDICARE, OTHER, SELFPAY ==
--- NOTE | 2021-12-15 14:08 | MM_ITS ---
WS: [id number] BILATERAL 3D TOMOSYNTHESIS DIGITAL SCREENING MAMMOGRAPHY WITH CAD CLINICAL INFORMATION: SCREENING HISTORY: Screening mammogram. No current complaints. COMPARISON: March 13, 2019 TECHNIQUE: Bilateral CC and MLO views. FINDINGS: Bilateral prepectoral breast implants with capsular calcifications. Scattered fibroglandular densities bilaterally. Punctate and lucent centered calcifications. Vascular calcification. No suspicious focal mass, asymmetry, calcifications, or architectural distortion. No evidence of malignancy. MM/[place] [id number] IMPRESSION: BI-RADS: 2-Benign FOLLOW UP: 1 Year Follow-up Recommend return to annual screening mammography.
== END 2021-12-15 13:59 | disposition home or self-care (01) ==
PROVIDERS: PCP Family Medicine; Visit Provider Family Medicine
DX: Z12.31 Encounter for screening mammogram for malignant neoplasm of breast (principal)
CPT/HCPCS: 77063; 77067

== ENCOUNTER → 2022-02-17 13:32 | Outpatient (BNVA) | payer MEDICARE, OTHER, SELFPAY | PROVIDERS: PCP Family Medicine; Visit Provider Specialist | DX: G43.711 Chronic migraine without aura, intractable, with status migrainosus (principal) | CPT/HCPCS: 64615; J0585 ==

== ENCOUNTER → 2022-05-12 11:47 | Outpatient (BNVA) | payer MEDICARE, OTHER, SELFPAY | PROVIDERS: PCP Family Medicine; Visit Provider Specialist | DX: G43.711 Chronic migraine without aura, intractable, with status migrainosus (principal) | CPT/HCPCS: 64615; J0585 ==

== ENCOUNTER 2022-05-29 22:20 | Emergency (ER) | payer MEDICARE, OTHER, SELFPAY ==
[2022-05-29 22:21] VITALS: BP 177/98; PULSE 77; RESP 18; TEMP 36.9; O2SAT 97; BMI 15.2
[2022-05-29 22:43] LABS: Basophils # 0.1 10^3/uL (0.0-0.1); Basophils % 0.8 %; Eosinophils # 0.1 10^3/uL (0.0-0.8); Eosinophils % 1.2 %; Hematocrit 40.8 % (37.0-47.0); Hemoglobin 12.9 g/dL (11.5-15.3); Lymphocytes # 1.2 10^3/uL (0.8-4.8); Lymphocytes % 18.8 %; Mean Corpuscular HGB Conc 31.6 g/dL (30.0-36.0); Mean Corpuscular Hemoglobin 29.7 pg (28.0-34.0); Mean Corpuscular Volume 93.8 fl (81-99); Mean Platelet Volume 9.5 fL (7.4-10.4); Monocytes # 0.4 10^3/uL (0.2-0.9); Monocytes % 5.3 %; Neutrophils # 4.85 10^3/uL (1.8-7.7); Neutrophils % 73.6 %; Nucleated Red Blood Cells % 0 %; Platelet Count 226 10^3/cmm (130-400); Red Blood Count 4.35 10^6/uL (4.1-5.3); Red Cell Distribution Width 12.6 % (12.1-15.1); White Blood Count 6.6 10^3/uL (4.0-10.0)
--- NOTE | 2022-05-29 22:46 | CTR_ITS ---
PROCEDURE INFORMATION: Exam: CTA Head With Contrast, Arteriography Exam date and time: 05/29/2022 11:25 PM Age: 71 years old Clinical indication: Dizziness and giddiness; Additional info: Dizziness and confusion TECHNIQUE: Imaging protocol: Computed tomographic angiography of the head with contrast. Exam focused on the arteries. 3D rendering (Not supervised by radiologist): MIP and/or 3D reconstructed images were created by the technologist. Radiation optimization: All CT scans at this facility use at least one of these dose optimization techniques: automated exposure control; mA and/or kV adjustment per patient size (includes targeted exams where dose is matched to clinical indication); or iterative reconstruction. Contrast material: OMNI 350; Contrast volume: 75 ml; Contrast route: INTRAVENOUS (IV); COMPARISON: CT head wo con* [id number] 02/08/2020 6:06 PM RADIATION DOSE METRICS: Total DLP (mGy-cm): 962.92 FINDINGS: ANTERIOR CIRCULATION: Right internal carotid artery: Intracranial segment is patent with no significant stenosis. No aneurysm. Right middle cerebral artery: No occlusion or significant stenosis. No aneurysm. Right anterior cerebral artery: No occlusion or significant stenosis. No aneurysm. Left internal carotid artery: Intracranial segment is patent with no significant stenosis. No aneurysm. Left middle cerebral artery: No occlusion or significant stenosis. No aneurysm. Left anterior cerebral artery: No occlusion or significant stenosis. No aneurysm. POSTERIOR CIRCULATION: Right vertebral artery: There is a prominent right PICA and the right vertebral artery becomes markedly hypoplastic as it enters the foramen magnum up to its confluence at the basilar. Left vertebral artery: No occlusion or significant stenosis. No aneurysm. Basilar artery: No occlusion or significant stenosis. No aneurysm. Right posterior cerebral artery: No occlusion or significant stenosis. No aneurysm. Left posterior cerebral artery: No occlusion or significant stenosis. No aneurysm. Brain: Age appropriate atrophy and small vessel ischemic change. No evidence of intracranial hemorrhage, mass effect, midline shift or extra-axial fluid collections. Midline structures are normal. Gerard-white matter differentiation is normal. Cerebral ventricles: No ventriculomegaly. Bones/joints: Unremarkable. No acute fracture. Soft tissues: Unremarkable. Other findings: Carotid atherosclerotic calcification. PROCEDURE INFORMATION: Exam: CTA Neck With Contrast Exam date and time: 05/29/2022 11:25 PM Age: 71 years old Clinical indication: Dizziness and giddiness; Additional info: Dizziness and confusion TECHNIQUE: Imaging protocol: Computed tomographic angiography of the neck with contrast. 3D rendering (Not supervised by radiologist): MIP and/or 3D reconstructed images were created by the technologist. Radiation optimization: All CT scans at this facility use at least one of these dose optimization techniques: automated exposure control; mA and/or kV adjustment per patient size (includes targeted exams where dose is matched to clinical indication); or iterative reconstruction. Contrast material: OMNI 350; Contrast volume: 75 ml; Contrast route: INTRAVENOUS (IV); COMPARISON: CT head wo con* [id number] 02/08/2020 6:06 PM RADIATION DOSE METRICS: Total DLP (mGy-cm): 962.92 FINDINGS: Right common carotid artery: No stenosis. No dissection or occlusion. Right internal carotid artery: No stenosis of the extracranial segment. No dissection or occlusion. Right external carotid artery: No occlusion or stenosis of the origin. Left common carotid artery: No stenosis. No dissection or occlusion. Left internal carotid artery: No stenosis of the extracranial segment. No dissection or occlusion. Left external carotid artery: No occlusion or stenosis of the origin. Right vertebral artery: No stenosis. No dissection or occlusion. Left vertebral artery: There is a dominant left vertebral artery. Right subclavian artery: There is a retroesophageal right subclavian artery. Soft tissues: Normal. No significant soft tissue swelling. Bones/joints: No acute fracture. CT/CT angio headneck* [id number] IMPRESSION: No acute vascular abnormality. IMPRESSION: No acute vascular abnormality. REFERENCES: NASCET CRITERIA. The degree of stenosis in the cervical segment of the internal carotid artery is based on NASCET criteria. Normal is no stenosis. Mild is less than 50% stenosis. Moderate is 50-69% stenosis. Severe is 70% to 99% stenosis. Total occlusion is no detectable patent lumen.
--- NOTE | 2022-05-29 22:48 | W.ED.DIZZY ---
Documented by User: VIDA Leal 05/30/22 03:12 HPI - Dizziness General: Chief Complaint: Dizziness Stated Complaint: Double Vision/Nausea Time Seen by Provider: 05/29/22 22:22 History of Present Illness: HPI Narrative: Patient is a 71-year-old female that comes to the ED with confusion and dizziness. Symptoms started today. She states that whenever she gets up and tries to walk around she feels disoriented and wobbly. She has trouble keeping her balance. Patient's son is present and he also states that tonight when he still patient she appeared confused and was having some hallucinations. Son said that patient had a similar episode like this a couple years ago and they thought it was a drug interaction. Denies any new or recent change in medications. Patient did state that she took a Flexeril 10 mg tab tonight, which she does not always take daily but only takes it when she is having some muscle pain. She took it tonight because she felt like her neck was sore. She states that she has been taking Flexeril as needed for many years so its not a new medication. Denies any drug use. Denies any chest pain or shortness of breath. Associated symptoms: Denies chest pain, chills, headache(s), nausea, nasal congestion, palpitations or vomiting Associated neuro symptoms: Reports confusion; Deny numbness in extremities Review of Systems Const: Reports: fatigue; Denies: fever(s) or chills Eyes: Denies: change in vision or eye discomfort ENMT: Denies: throat pain, odynophagia, nasal discharge or nasal congestion Card: Denies: chest pain, palpitations, edema, swelling of feet/ankles, dyspnea on exertion or orthopnea Resp: Denies: dyspnea, productive cough or non-productive cough GI: Denies: abdominal pain, nausea, vomiting, diarrhea, constipation or hematochezia : Denies: flank pain, dysuria or hematuria Musc: Denies: neck pain, back pain or extremity swelling Skin/Breast: Denies: rash or new lesions Neuro: Reports: dizziness and confusion; Denies: headache(s), numbness in extremities or weakness in extremities PFS ED PFSH: Medical History Anxiety CHF (congestive heart failure) Chronic migraine without aura, intractable, with status migrainosus Depression Hx of fracture of humerus Hx of head injury Non-ischemic cardiomyopathy Osteoarthritis PTSD (post-traumatic stress disorder) Surgical History History of appendectomy History of breast augmentation History of hysterectomy History of tonsillectomy Family History Other Acute depression Cancer Chronic migraine without aura, intractable, with status migrainosus Stroke Social History Smoking and tobacco status: never smoked History of recent travel: No Physical Exam Const: COMMON NORMALS: patient oriented x3 and alert GENERAL APPEARANCE: cooperative and comfortable HENMT: COMMON NORMALS: normocephalic HEAD & SCALP: normocephalic MOUTH: Normal oral and palatal mucosa present THROAT: posterior oropharynx normal and uvula midline Eye: COMMON NORMALS: Equal, round and reactive pupils present and EOMs intact bilaterally GENERAL EYE: appearance normal, both eyes and all related structures PUPIL: Yes Equal, round and reactive pupils present Neck/C-Spine: COMMON NORMALS: supple GENERAL: Yes normal visual inspection Lymph: LYMPHATIC: no lymphadenopathy noted Resp: COMMON NORMALS: normal respiratory effort, No retractions, No use of accessory muscles and clear to auscultation bilaterally AUSCULTATION: clear to auscultation bilaterally Cardio: COMMON NORMALS: regular rate, regular rhythm, S1 normal heart sound present, S2 normal heart sound present, No gallops present (Cardio), No clicks present (Cardio), No murmurs present (Cardio) and Peripheral pulses 2+ throughout RATE: regular rate RHYTHM: regular rhythm HEART SOUNDS: S1 normal heart sound present and S2 normal heart sound present PERIPHERAL PULSES: Peripheral pulses 2+ throughout GI: COMMON NORMALS: Normal to inspection, nondistended, normoactive bowel sounds present, Soft to palpation, non-tender and no masses PALPATION: Yes Soft to palpation : COMMON NORMALS: Yes no CVA tenderness BLADDER/KIDNEY EXAM: Yes no CVA tenderness Back/Pelvis: COMMON NORMALS: no CVA tenderness Extremity: GENERAL: Yes normal exam except as noted Neuro: COMMON NORMALS: patient oriented x3, CN's II-XII intact bilaterally, moves all extremities, no focal motor deficits and no sensory deficits noted SENSORIUM/ORIENTATION: Yes alert SPEECH: speech normal SENSORY EXAM: Yes extremities (intact) MOTOR EXAM: 5/5 motor strength present throughout OTHER: Patient at times did seem a little confused and started talking about stories that were not relevant to some of my questions. She would quickly realize it and then correct her statement. Skin: COMMON NORMALS: no rashes or lesions noted GENERAL SKIN EXAM: no rashes or lesions noted and dry skin Course ED course: There is got patient up and walked her around the unit briefly and she passed the road test and was physically able to ambulate with minimal assistance. Vital Signs: Vital signs: Vital Signs Temperature 98.4 F 05/29/22 22:21 Pulse Rate 77 05/29/22 22:21 Respiratory Rate 18 05/29/22 22:21 Blood Pressure 177/98 05/29/22 22:21 Pulse Oximetry 97 05/29/22 22:21 Oxygen Delivery Me thod 05/29/22 22:21 MDM - Dizziness Medical Decision Making Patient is a 71-year-old female that comes to the ED with confusion and dizziness. Patient took a Flexeril tonight which she does not normally take. She also had very little to eat just had a bowl of cereal today. Dizziness was described as feeling weak and wobbly when up and moving around. Vitals are stable. Patient appears nontoxic in no acute distress or pain. She is alert and oriented x3 and neuro exam shows no deficits. Rest of her exam was benign. She did occasionally make some comments that seemed a little confused or with going to talk about a story that was not relevant. She would then realize what she was doing and then corrected. CBC and CMP were unremarkable. UA showed no signs of any UTI. Head and neck CTA showed no acute findings. Urine drug screen was negative for any substances. There is patient up for road test she completed it is able to ambulate with minimal to no assistance. I think most of patient's symptoms are tied to her taking the Flexeril tonight and having some little to eat today. She is stable for discharge home and diagnosed with medication side effect and confusion. Told to follow-up with her PCP within the next week for reevaluation. Return to ED precautions given. Patient understood and agreed with plan. Lab Data I reviewed the patient's lab results. 05/29/22 22:30 05/29/22 22:30 Radiology Impressions Head/Neck CTA 05/29/22 22:46 IMPRESSION: No acute vascular abnormality. IMPRESSION: No acute vascular abnormality. REFERENCES: NASCET CRITERIA. The degree of stenosis in the cervical segment of the internal carotid artery is based on NASCET criteria. Normal is no stenosis. Mild is less than 50% stenosis. Moderate is 50-69% stenosis. Severe is 70% to 99% stenosis. Total occlusion is no detectable patent lumen. Laboratory Results WBC 6.6 10^3/uL (4.0-10.0) 05/29/22 22: RBC 4.35 10^6/uL (4.1-5.3) 05/29/22 22: Hgb 12.9 g/dL (11.5-15.3) 05/29/22: Hct 40.8 % (37.0-47.0) 05/29/22: MCV 93.8 fl (81-99) 05/29/22 22: MCH 29.7 pg (28.0-34.0) 05/29/22 22: MCHC 31.6 g/dL (30.0-36.0) 05/29/22: RDW 12.6 % (12.1-15.1) 05/29/22 22:30 Plt Count 226 10^3/cmm (130-400) 05/29/22 22:30 MPV 9.5 fL (7.4-10.4) 05/29/22 22: Neut % (Auto) 73.6 % 05/29/22 22:30 Lymph % (Auto) 18.8 % 05/29/22:30 [place] % (Auto) 5.3 % 05/29/22: Eos % (Auto) 1.2 % 05/29/22 22: Baso % (Auto) 0.8 % 05/29/22 22:30 Neut # (Auto) 4.85 10^3/uL (1.8-7.7) 05/29/22 22:30 Lymph # (Auto) 1.2 10^3/uL (0.8-4.8) 05/29/22 22:30 [place] # (Auto) 0.4 10^3/uL (0.2-0.9) 05/29/22 22:30 Eos # (Auto) 0.1 10^3/uL (0.0-0.8) 05/29/22 22:30 Baso # (Auto) 0.1 10^3/uL (0.0-0.1) 05/29/22 22:30 Nucleated RBC % (auto) 0 % 05/29/22: Nucleated RBCs # 0.0 /100WBC 05/29/22 22:30 Sodium 137 mmol/L (136-145) 05/29/22 22:30 Potassium 3.9 mmol/L (3.5-5.1) 05/29/22 22: Chloride 97 mmol/L (98-107) L 05/29/22: Carbon Dioxide 30 mmol/L (22-29) H 05/29/22 22: Anion Gap 13.9 (5-19) 05/29/22 22:30 BUN 14 mg/dL (8-23) 05/29/22 22:30 Creatinine 1.1 mg/dL (0.5-0.9) H 05/29/22 22:30 GFR Calculation Not Reportable 05/29/22 22:30 Glucose 100 mg/dL (65-115) 05/29/22 22: POC Glucose 103 mg/dL (70-110) 05/30/22 01:52 Calculated Osmolality 285 mOsm/kg (285-295) 05/29/22 22: Calcium 9.5 mg/dL (8.5-10.5) 05/29/22 22:30 Total Bilirubin 0.4 mg/dL (0.15-1.2) 05/29/22 22:30 AST 18 U/L (0-32) 05/29/22 22:30 ALT 18 U/L (0-33) 05/29/22 22:30 Alkaline Phosphatase 100 U/L (35-105) 05/29/22 22:30 Total Protein 7.6 g/dL (6.6-8.7) 05/29/22 22:30 Albumin 4.5 g/dL (3.5-5.2) 05/29/22 22:30 Globulin 3.1 g/dL (1.3-4.6) 05/29/22 22:30 Urine Color Colorless (Yellow) 05/29/22 22:30 Urine Appearance Clear (CLEAR) 05/29/22 22:30 Urine pH 8 (5-7) H 05/29/22 22:30 Ur Specific [place] 1.010 (1.005-1.030) 05/29/22 22:30 Urine Protein Neg (Negative) 05/29/22 22:30 Urine Glucose (UA) Norm (Normal) 05/29/22 22:30 Urine Ketones Negative (Negative) 05/29/22 22:30 Urine Blood Neg (Negative) 05/29/22 22:30 Urine Nitrate Negative (Negative) 05/29/22 22:30 Urine Bilirubin Neg (Negative) 05/29/22 22:30 Prot Sulfosalicylic Acd Negative (Negative) 05/29/22 22:30 Urine Urobilinogen Neg mg/dL (Negative) 05/29/22 22:30 Ur Leukocyte Esterase Negative (Negative) 05/29/22 22:30 Urine Opiates Screen Negative ng/mL (Negative) 05/29/22 22:30 Ur Barbiturates Screen Negative ng/mL (Negative) 05/29/22 22:30 Ur Phencyclidine Scrn Negative ng/mL (Negative) 05/29/22 22:30 Ur Amphetamines Screen Negative ng/mL (Negative) 05/29/22 22:30 U Benzodiazepines Scrn Negative ng/mL (Negative) 05/29/22 22:30 Urine Cocaine Screen Negative ng/mL (Negative) 05/29/22 22:30 U Marijuana (THC) Screen Negative ng/mL (Negative) 05/29/22 22:30 Discharge Plan Discharge Patient Disposition: Home Clinical Impression: Medication side effect, Confusion with non-focal neuro exam Condition: Stable Prescriptions: No Action (DME) Carbon fiber Yes Qty: 1 0RF Rx Instructions: As directed potassium chloride 10 mEq capsule, extended release 10 meq PO BID Qty: 60 3RF famotidine [Acid Insurance Job Titles (famotidine)] PO atorvastatin [Lipitor] PO promethazine 12.5 mg tablet 12.5 mg PO Q6H PRN (Reason: Nausea) sumatriptan succinate 100 mg tablet 100 mg PO PRN lorazepam 0.5 mg tablet 0.5 mg PO PRN cyclobenzaprine 10 mg tablet 10 mg PO TID PRN (Reason: unknown) bupropion HCl 300 mg tablet extended release 24 hr 300 mg PO QAM carvedilol 6.25 mg tablet 6.25 mg PO BID cbd PO THC PO aspirin [Adult Aspirin Regimen] 81 mg tablet,delayed release (DR/EC) 81 mg PO DAILY bumetanide 0.5 mg tablet 0.5 mg PO BID trazodone 150 mg tablet 150 mg PO DAILY Entresto 24-26 mg tablet 1 tab PO BID hydrocodone-acetaminophen 10-325 mg tablet 1 tab PO BID PRN hydroxyzine HCl 10 mg tablet 10 mg PO TID PRN olanzapine [Zyprexa] 5 mg tablet 5 mg PO DAILY Qty: 90 1RF Rx Instructions: 1/2 a tab at bedtime for 7 days then increase to 1/2 a tab BID Tylenol Extra Strength 500 mg Tablet 1,500 mg PO PRN Discharge Orders: Discharge ED (Routine); Ordered 05/30/22 Ordered By: Bhavesh Nguyen Referrals: Grant Barger [Primary Care Provider] - Discharge Diet: Regular Discharge Activity: Increase activity as tolerated Activity Restrictions/Additional Instructions: Follow-up with medical provider as directed in the next 7 to 10 days for reevaluation. Continue taking all home medications as previously prescribed. Return to the ED or if condition worsens or symptoms do not improve. Please read and understand discharge instructions. Thank you for choosing [facility] for your healthcare needs today. Please realize this is an emergency room and that we are providing you with a medical screening exam and this may not be complete and all inclusive of all the testing and or work up that you may need to determine your ailment or severity of your illness. It is very important that you follow up as instructed or that you return to the Emergency Department should you have concerns or if your condition changes or worsens in any way. Coding Level of Care Code ED Senior Producer for Chg Fwd Exam Comprehensive Documented by User: Rell Mark DO 05/30/22 03:44 HPI - Dizziness General: Chief Complaint: Dizziness Stated Complaint: Double Vision/Nausea Time Seen by Provider: 05/29/22 22:22 [facility] ED PFSH: Medical History Anxiety CHF (congestive heart failure) Chronic migraine without aura, intractable, with status migrainosus Depression Hx of fracture of humerus Hx of head injury Non-ischemic cardiomyopathy Osteoarthritis PTSD (post-traumatic stress disorder) Surgical History History of appendectomy History of breast augmentation History of hysterectomy History of tonsillectomy Family History Other Acute depression Cancer Chronic migraine without aura, intractable, with status migrainosus Stroke Social History Smoking and tobacco status: never smoked History of recent travel: No Course Vital Signs: Vital signs: Vital Signs Temperature 98.4 F 05/29/22 22:21 Pulse Rate 77 05/29/22 22:21 Respiratory Rate 18 05/29/22 22:21 Blood Pressure 177/98 05/29/22 22:21 Pulse Oximetry 97 05/29/22 22:21 Oxygen Delivery Me thod 05/29/22 22:21 MDM - Dizziness Medical Decision Making Patient is a 71-year-old female that comes to the ED with confusion and dizziness. Patient took a Flexeril tonight which she does not normally take. She also had very little to eat just had a bowl of cereal today. Dizziness was described as feeling weak and wobbly when up and moving around. Vitals are stable. Patient appears nontoxic in no acute distress or pain. She is alert and oriented x3 and neuro exam shows no deficits. Rest of her exam was benign. She did occasionally make some comments that seemed a little confused or with going to talk about a story that was not relevant. She would then realize what she was doing and then corrected. CBC and CMP were unremarkable. UA showed no signs of any UTI. Head and neck CTA showed no acute findings. Urine drug screen was negative for any substances. There is patient up for road test she completed it is able to ambulate with minimal to no assistance. I think most of patient's symptoms are tied to her taking the Flexeril tonight and having some little to eat today. She is stable for discharge home and diagnosed with medication side effect and confusion. Told to follow-up with her PCP within the next week for reevaluation. Return to ED precautions given. Patient understood and agreed with plan. This patient was originally seen by Mr. Wendy PA-C.? I agree with his history, evaluation, and treatment. Lab Data 05/29/22 22:05/29/22 22:30 Radiology Impressions Head/Neck CTA 05/29/22 22:46 IMPRESSION: No acute vascular abnormality. IMPRESSION: No acute vascular abnormality. REFERENCES: NASCET CRITERIA. The degree of stenosis in the cervical segment of the internal carotid artery is based on NASCET criteria. Normal is no stenosis. Mild is less than 50% stenosis. Moderate is 50-69% stenosis. Severe is 70% to 99% stenosis. Total occlusion is no detectable patent lumen. Laboratory Results WBC 6.6 10^3/uL (4.0-10.0) 05/29/22 22: RBC 4.35 10^6/uL (4.1-5.3) 05/29/22: Hgb 12.9 g/dL (11.5-15.3) 05/29/22: Hct 40.8 % (37.0-47.0) 05/29/22: MCV 93.8 fl (81-99) 05/29/22: MCH 29.7 pg (28.0-34.0) 05/29/22: MCHC 31.6 g/dL (30.0-36.0) 05/29/22: RDW 12.6 % (12.1-15.1) 05/29/22: Plt Count 226 10^3/cmm (130-400) 05/29/22: MPV 9.5 fL (7.4-10.4) 05/29/22: Neut % (Auto) 73.6 % 05/29/22 22: Lymph % (Auto) 18.8 % 05/29/22: [place] % (Auto) 5.3 % 05/29/22 22:30 Eos % (Auto) 1.2 % 05/29/22 22:30 Baso % (Auto) 0.8 % 05/29/22 22: Neut # (Auto) 4.85 10^3/uL (1.8-7.7) 05/29/22 22:30 Lymph # (Auto) 1.2 10^3/uL (0.8-4.8) 05/29/22: [place] # (Auto) 0.4 10^3/uL (0.2-0.9) 05/29/22 22: Eos # (Auto) 0.1 10^3/uL (0.0-0.8) 05/29/22: Baso # (Auto) 0.1 10^3/uL (0.0-0.1) 05/29/22: Nucleated RBC % (auto) 0 % 05/29/22: Nucleated RBCs # 0.0 /100WBC 05/29/22 22: Sodium 137 mmol/L (136-145) 05/29/22 22: Potassium 3.9 mmol/L (3.5-5.1) 05/29/22 22: Chloride 97 mmol/L (98-107) L 05/29/22: Carbon Dioxide 30 mmol/L (22-29) H 05/29/22 22:30 Anion Gap 13.9 (5-19) 05/29/22 22:30 BUN 14 mg/dL (8-23) 05/29/22 22: Creatinine 1.1 mg/dL (0.5-0.9) H 05/29/22 22:30 GFR Calculation Not Reportable 05/29/22 22: Glucose 100 mg/dL (65-115) 05/29/22 22: POC Glucose 103 mg/dL (70-110) 05/30/22 01:52 Calculated Osmolality 285 mOsm/kg (285-295) 05/29/22: Calcium 9.5 mg/dL (8.5-10.5) 05/29/22 22:30 Total Bilirubin 0.4 mg/dL (0.15-1.2) 05/29/22 22:30 AST 18 U/L (0-32) 05/29/22 22:30 ALT 18 U/L (0-33) 05/29/22 22:30 Alkaline Phosphatase 100 U/L (35-105) 05/29/22 22:30 Total Protein 7.6 g/dL (6.6-8.7) 05/29/22 22:30 Albumin 4.5 g/dL (3.5-5.2) 05/29/22 22: Globulin 3.1 g/dL (1.3-4.6) 05/29/22 22: Urine Color Colorless (Yellow) 05/29/22 22: Urine Appearance Clear (CLEAR) 05/29/22: Urine pH 8 (5-7) H 05/29/22: Ur Specific [place] 1.010 (1.005-1.030) 05/29/22:30 Urine Protein Neg (Negative) 05/29/22 22:30 Urine Glucose (UA) Norm (Normal) 05/29/22 22:30 Urine Ketones Negative (Negative) 05/29/22:30 Urine Blood Neg (Negative) 05/29/22 22:30 Urine Nitrate Negative (Negative) 05/29/22 22:30 Urine Bilirubin Neg (Negative) 05/29/22 22:30 Prot Sulfosalicylic Acd Negative (Negative) 05/29/22 22:30 Urine Urobilinogen Neg mg/dL (Negative) 05/29/22 22:30 Ur Leukocyte Esterase Negative (Negative) 05/29/22 22:30 Urine Opiates Screen Negative ng/mL (Negative) 05/29/22 22:30 Ur Barbiturates Screen Negative ng/mL (Negative) 05/29/22 22:30 Ur Phencyclidine Scrn Negative ng/mL (Negative) 05/29/22 22:30 Ur Amphetamines Screen Negative ng/mL (Negative) 05/29/22 22:30 U Benzodiazepines Scrn Negative ng/mL (Negative) 05/29/22 22:30 Urine Cocaine Screen Negative ng/mL (Negative) 05/29/22 22:30 U Marijuana (THC) Screen Negative ng/mL (Negative) 05/29/22 22:30 Discharge Plan Discharge Patient Disposition: Home Clinical Impression: Medication side effect, Confusion with non-focal neuro exam Condition: Stable Prescriptions: No Action (DME) Carbon fiber Yes Qty: 1 0RF Rx Instructions: As directed potassium chloride 10 mEq capsule, extended release 10 meq PO BID Qty: 60 3RF famotidine [Acid Insurance Job Titles (famotidine)] PO atorvastatin [Lipitor] PO promethazine 12.5 mg tablet 12.5 mg PO Q6H PRN (Reason: Nausea) sumatriptan succinate 100 mg tablet 100 mg PO PRN lorazepam 0.5 mg tablet 0.5 mg PO PRN cyclobenzaprine 10 mg tablet 10 mg PO TID PRN (Reason: unknown) bupropion HCl 300 mg tablet extended release 24 hr 300 mg PO QAM carvedilol 6.25 mg tablet 6.25 mg PO BID cbd PO THC PO aspirin [Adult Aspirin Regimen] 81 mg tablet,delayed release (DR/EC) 81 mg PO DAILY bumetanide 0.5 mg tablet 0.5 mg PO BID trazodone 150 mg tablet 150 mg PO DAILY Entresto 24-26 mg tablet 1 tab PO BID hydrocodone-acetaminophen 10-325 mg tablet 1 tab PO BID PRN hydroxyzine HCl 10 mg tablet 10 mg PO TID PRN olanzapine [Zyprexa] 5 mg tablet 5 mg PO DAILY Qty: 90 1RF Rx Instructions: 1/2 a tab at bedtime for 7 days then increase to 1/2 a tab BID Tylenol Extra Strength 500 mg Tablet 1,500 mg PO PRN Discharge Orders: Discharge ED (Routine); Ordered 05/30/22 Ordered By: Bhavesh Nguyen Referrals: Grant Barger [Primary Care Provider] - Discharge Diet: Regular Discharge Activity: Increase activity as tolerated Activity Restrictions/Additional Instructions: Follow-up with medical provider as directed in the next 7 to 10 days for reevaluation. Continue taking all home medications as previously prescribed. Return to the ED or if condition worsens or symptoms do not improve. Please read and understand discharge instructions. Thank you for choosing [facility] for your healthcare needs today. Please realize this is an emergency room and that we are providing you with a medical screening exam and this may not be complete and all inclusive of all the testing and or work up that you may need to determine your ailment or severity of your illness. It is very important that you follow up as instructed or that you return to the Emergency Department should you have concerns or if your condition changes or worsens in any way. Coding Level of Care Code ED Senior Producer for Filomena Fwbrisa Exam Comprehensive
[2022-05-29 22:58] LABS: Add Urine Microscopic? NO; Charge for UA Resulting for Rev
[2022-05-29 23:04] LABS: Alanine Aminotransferase 18 U/L (0-33); Albumin Level 4.5 g/dL (3.5-5.2); Alkaline Phosphatase 100 U/L (35-105); Anion Gap 13.9 (5-19); Aspartate Amino Transferase 18 U/L (0-32); Blood Urea Nitrogen 14 mg/dL (8-23); Calcium 9.5 mg/dL (8.5-10.5); Carbon Dioxide 30 mmol/L (22-29); Chloride 97 mmol/L (98-107); Globulin 3.1 g/dL (1.3-4.6); Glucose 100 mg/dL (65-115); Osmolality Calculated 285 mOsm/kg (285-295); Potassium 3.9 mmol/L (3.5-5.1); Sodium 137 mmol/L (136-145); Total Bilirubin 0.4 mg/dL (0.15-1.2); Total Protein 7.6 g/dL (6.6-8.7)
[2022-05-29 23:08] LABS: Urine Appearance Clear (CLEAR); Urine Color Colorless (Yellow)
[2022-05-29 23:09] LABS: Bilirubin Urine Neg (Negative); Blood Urine Neg (Negative); Glucose Urine UA Norm (Normal); Ketones Urine Negative (Negative); Leukocyte Esterase Urine Negative (Negative); Nitrate Urine Negative (Negative); Protein Urine Neg (Negative); Sulfosalicylic Acid Urine Negative (Negative); Urobilinogen Urine Neg (Negative); pH Urine 8 (5-7)
[2022-05-29] MEDS: iohexol 350 mg/mL 500 mL Btl (per mL) IV (23:26)
[2022-05-30 01:23] LABS: Amphetamines Screen Urine Negative (Negative); Barbiturates Screen Urine Negative (Negative); Benzodiazepines Screen Urine Negative (Negative); Cocaine Screen Urine Negative (Negative); Opiate Screen Urine Negative (Negative); PCP Screen Urine Negative (Negative); THC Screen Urine Negative (Negative)
[2022-05-30 01:55] LABS: Glucose Point of Care 103 mg/dL (70-110)
== END 2022-05-30 02:58 | disposition home or self-care (01) ==
PROVIDERS: Emergency Provider Physician Assistant; PCP Family Medicine
DX: R41.0 Disorientation, unspecified (principal); T48.1X5A Adverse effect of skeletal muscle relaxants [neuromuscular blocking agents], initial encounter; Z79.82 Long term (current) use of aspirin; I50.9 Heart failure, unspecified
CPT/HCPCS: 36416; 70496; 70498; 80053; 80306; 81003; 82962; 85025; 99284; 99291; 99292; Q9967

== ENCOUNTER → 2022-08-04 12:37 | Outpatient (BNVA) | payer MEDICARE, OTHER, SELFPAY | PROVIDERS: PCP Family Medicine; Visit Provider Specialist | DX: G43.711 Chronic migraine without aura, intractable, with status migrainosus (principal) | CPT/HCPCS: 64615; J0585 ==

== ENCOUNTER → 2022-11-03 11:04 | Outpatient (BNVA) | payer MEDICARE, OTHER, SELFPAY | PROVIDERS: PCP Family Medicine; Visit Provider Specialist | DX: G43.711 Chronic migraine without aura, intractable, with status migrainosus (principal) | CPT/HCPCS: 64615; J0585 ==

== ENCOUNTER → 2023-02-03 10:21 | Outpatient (BNVA) | payer MEDICARE, OTHER, SELFPAY | PROVIDERS: PCP Family Medicine; Visit Provider Specialist | DX: G43.711 Chronic migraine without aura, intractable, with status migrainosus (principal) | CPT/HCPCS: 64615; J0585 ==

== ENCOUNTER → 2023-05-11 10:47 | Outpatient (BNVA) | payer MEDICARE, OTHER, SELFPAY | PROVIDERS: PCP Family Medicine; Visit Provider Specialist | DX: G43.711 Chronic migraine without aura, intractable, with status migrainosus (principal); H54.7 Unspecified visual loss; R03.0 Elevated blood-pressure reading, without diagnosis of hypertension | CPT/HCPCS: 64615; 99213; J0585 ==

== ENCOUNTER → 2023-06-13 13:38 | Outpatient (BNVA) | payer MEDICARE, OTHER, SELFPAY | PROVIDERS: PCP Family Medicine; Visit Provider Specialist | DX: G45.9 Transient cerebral ischemic attack, unspecified (principal); G43.711 Chronic migraine without aura, intractable, with status migrainosus; Z95.0 Presence of cardiac pacemaker | CPT/HCPCS: 99215 ==

== ENCOUNTER → 2023-08-10 11:04 | Outpatient (BNVA) | payer MEDICARE, OTHER, SELFPAY | PROVIDERS: PCP Family Medicine; Visit Provider Specialist | DX: G43.711 Chronic migraine without aura, intractable, with status migrainosus (principal) | CPT/HCPCS: 64615; J0585 ==

== ENCOUNTER → 2023-11-09 13:15 | Outpatient (BNVA) | payer MEDICARE, OTHER, SELFPAY | PROVIDERS: PCP Family Medicine; Visit Provider Specialist | DX: G43.711 Chronic migraine without aura, intractable, with status migrainosus (principal); M46.1 Sacroiliitis, not elsewhere classified; M79.7 Fibromyalgia; G45.9 Transient cerebral ischemic attack, unspecified; R42 Dizziness and giddiness | CPT/HCPCS: 27096; 64615; 99214; J0585; J1010; J3490 ==

== ENCOUNTER → 2024-01-05 14:49 | Outpatient (BNVA) | payer MEDICARE, OTHER, SELFPAY | PROVIDERS: PCP Family Medicine; Visit Provider Specialist | DX: G43.711 Chronic migraine without aura, intractable, with status migrainosus (principal); M46.1 Sacroiliitis, not elsewhere classified; M79.7 Fibromyalgia; G45.9 Transient cerebral ischemic attack, unspecified; R42 Dizziness and giddiness | CPT/HCPCS: 99214 ==

== ENCOUNTER → 2024-02-22 12:36 | Outpatient (BNVA) | payer MEDICARE, OTHER, SELFPAY | PROVIDERS: PCP Family Medicine; Visit Provider Specialist | DX: G43.711 Chronic migraine without aura, intractable, with status migrainosus (principal); M46.1 Sacroiliitis, not elsewhere classified; M79.7 Fibromyalgia; G45.9 Transient cerebral ischemic attack, unspecified; R42 Dizziness and giddiness | CPT/HCPCS: 64615; J0585 ==

== ENCOUNTER → 2024-05-31 11:41 | Outpatient (BNVA) | payer MEDICARE, OTHER, SELFPAY | PROVIDERS: PCP Family Medicine; Visit Provider Specialist | DX: G43.711 Chronic migraine without aura, intractable, with status migrainosus (principal); M46.1 Sacroiliitis, not elsewhere classified; M79.7 Fibromyalgia; G45.9 Transient cerebral ischemic attack, unspecified; R42 Dizziness and giddiness; R03.0 Elevated blood-pressure reading, without diagnosis of hypertension | CPT/HCPCS: 64615; J0585 ==

== ENCOUNTER → 2024-08-14 13:58 | Outpatient (BNVA) | payer MEDICARE, OTHER, SELFPAY | PROVIDERS: PCP Family Medicine; Referring Provider Nurse Practitioner Family; Visit Provider Nurse Practitioner Family | DX: D48.5 Neoplasm of uncertain behavior of skin (principal); L57.8 Other skin changes due to chronic exposure to nonionizing radiation; X58.XXXA Exposure to other specified factors, initial encounter; L57.0 Actinic keratosis; D18.01 Hemangioma of skin and subcutaneous tissue | CPT/HCPCS: 11102; 17000; 99203 ==

== ENCOUNTER → 2024-08-30 11:31 | Outpatient (BNVA) | payer MEDICARE, OTHER, SELFPAY | PROVIDERS: PCP Family Medicine; Visit Provider Specialist | DX: G43.711 Chronic migraine without aura, intractable, with status migrainosus (principal) | CPT/HCPCS: 64615; J0585 ==

== ENCOUNTER → 2024-09-25 10:49 | Outpatient (BNVA) | payer MEDICARE, OTHER, SELFPAY | PROVIDERS: PCP Family Medicine; Visit Provider Nurse Practitioner Family | DX: D22.5 Melanocytic nevi of trunk (principal); L57.8 Other skin changes due to chronic exposure to nonionizing radiation; X32.XXXA Exposure to sunlight, initial encounter; L57.0 Actinic keratosis; L82.0 Inflamed seborrheic keratosis; L29.89 Other pruritus; R20.9 Unspecified disturbances of skin sensation; L53.8 Other specified erythematous conditions | CPT/HCPCS: 17110; 99213 ==

== ENCOUNTER → 2024-09-30 13:53 | Outpatient (BNVA) | payer MEDICARE, OTHER, SELFPAY | PROVIDERS: PCP Family Medicine; Visit Provider Dermatology | DX: D22.5 Melanocytic nevi of trunk (principal) | CPT/HCPCS: 11602; 12032 ==

== ENCOUNTER → 2024-11-29 11:32 | Outpatient (BNVA) | payer MEDICARE, OTHER, SELFPAY | PROVIDERS: PCP Family Medicine; Visit Provider Specialist | DX: G43.711 Chronic migraine without aura, intractable, with status migrainosus (principal) | CPT/HCPCS: 64615; J0585; J9999 ==

== ENCOUNTER → 2025-03-06 11:10 | Outpatient (BNVA) | payer MEDICARE, OTHER, SELFPAY | PROVIDERS: PCP Family Medicine; Visit Provider Specialist | DX: G43.711 Chronic migraine without aura, intractable, with status migrainosus (principal) | CPT/HCPCS: 64615; J0585; J9999 ==

== ENCOUNTER 2025-05-26 12:00 | Inpatient (IN) | payer MEDICARE, OTHER, SELFPAY ==
[2025-05-26] VITALS (13 sets, daily range): BP systolic 121–145; BP diastolic 71–89; PULSE 60–98; RESP 13–18; TEMP 36.3–36.6; O2SAT 93–99; BMI 16.7; BMI 17.7
--- NOTE | 2025-05-26 12:02 | XR_ITS ---
WS: [id number] XR hip RT 2-3V wo/w pel* [id number] REASON FOR EXAM: Trauma FINDINGS: Minimally displaced intertrochanteric fracture which extends inferiorly to involve the base of the lesser trochanter without significant displacement of the lesser trochanter. XR/XR hip RT 2-3V wo/w pel* [id number] IMPRESSION: Intertrochanteric hip fracture as above.
--- NOTE | 2025-05-26 12:06 | W.ED.EXTPRO ---
HPI - Extremity Problem General: Chief complaint: Extremity Injury, Lower Stated complaint: fall - right hip pain Time Seen by Provider: 05/26/25 12:02 History of Present Illness: 74-year-old female presents emergency room with complaint of right hip pain after a fall. She had a ground-level mechanical fall she tripped on a rug. She has multiple old bruises from previous she was walking today tripped again this time has severe right hip pain unable to stand. She denies striking her head there is no loss consciousness. She is not on any anticoagulants. She does take aspirin daily she last ate at 9 AM today Associated symptoms: Deny chest pain, fever(s) or rash Related Data Home Medications ?Medication ?Instructions ?Recorded ?Confirmed bupropion HCl 300 mg 24 hr tablet, 300 mg PO QAM 09/05/19 03/06/25 extended release carvedilol 6.25 mg tablet 6.25 mg PO BID 09/05/19 03/06/25 cyclobenzaprine 10 mg tablet 10 mg PO TID PRN unknown 09/05/19 03/06/25 promethazine 12.5 mg tablet 12.5 mg PO Q6H PRN Nausea 09/05/19 03/06/25 acetaminophen 500 mg tablet 1,500 mg PO PRN 02/08/20 03/06/25 (Tylenol Extra Strength) atorvastatin [Lipitor] PO 11/12/20 03/06/25 famotidine [Acid Grain Elevator Superintendent PO 11/12/20 03/06/25 (famotidine)] aspirin 81 mg tablet,delayed 81 mg PO DAILY 04/29/21 03/06/25 release (Adult Aspirin Regimen) bumetanide 0.5 mg tablet 0.5 mg PO BID 04/29/21 03/06/25 sacubitril 24 mg-valsartan 26 mg 1 tab PO BID 04/29/21 03/06/25 tablet (Entresto) trazodone 150 mg tablet 150 mg PO DAILY 04/29/21 03/06/25 Previous Rx's ?Medication ?Instructions ?Recorded Carbon fiber #1 ea 10/03/19 potassium chloride 10 mEq 10 meq PO BID #60 caps 12/10/19 capsule,extended release Allergies Allergy/AdvReac Type Severity Reaction Status Date / Time ondansetron Allergy ADR-Nausea Verified 08/28/25 11:37 prochlorperazine (From Allergy Muscle Verified 03/06/25 11:37 Compazine) Contraction Review of Systems Const: Denies: fever(s) or chills Card: Denies: chest pain Resp: Denies: dyspnea GI: Denies: abdominal pain : Denies: dysuria, urinary frequency or urinary urgency Musc: Reports: joint pain; Denies: neck pain or back pain Skin/Breast: Denies: rash PFSH ED PFSH: Medical History Anxiety Depression Chronic migraine without aura, intractable, with status migrainosus Osteoarthritis PTSD (post-traumatic stress disorder) Hx of fracture of humerus Hx of head injury Non-ischemic cardiomyopathy CHF (congestive heart failure) Surgical History History of breast augmentation History of appendectomy History of hysterectomy History of tonsillectomy Family History Other Acute depression Cancer Chronic migraine without aura, intractable, with status migrainosus Stroke Social History Smoking and tobacco/nicotine status: never used tobacco/nicotine Physical Exam Const: GENERAL APPEARANCE: cooperative ORIENTATION/CONSCIOUSNESS: Yes awake, Yes oriented to person, Yes oriented to place and Yes oriented to time HENMT: COMMON NORMALS: normocephalic, atraumatic and hearing grossly normal bilaterally HEAD & SCALP: normocephalic and atraumatic Resp: COMMON NORMALS: normal respiratory effort, No retractions, No use of accessory muscles and clear to auscultation bilaterally AUSCULTATION: clear to auscultation bilaterally Cardio: COMMON NORMALS: regular rate, regular rhythm and No murmurs present (Cardio) RATE: regular rate RHYTHM: regular rhythm GI: COMMON NORMALS: Soft to palpation and No hepatosplenomegaly present AUSCULTATION: Yes normoactive bowel sounds PALPATION: Yes Soft to palpation, No Tenderness to palpation present (GI), No Guarding due to palpation present (GI) and Yes No hepatosplenomegaly present Extremity: COMMON NORMALS: normal to inspection, capillary refill normal, no clubbing, cyanosis or edema, no calf tenderness and no pedal edema Neuro: SENSORIUM/ORIENTATION: Yes oriented to person, Yes oriented to place and Yes oriented to time Skin: COMMON NORMALS: no rashes or lesions noted GENERAL SKIN EXAM: no rashes or lesions noted Course Vital Signs: Vital signs: Vital Signs Temperature 97.8 F 05/26/25 12:01 Pulse Rate 60 05/26/25 13:04 Respiratory Rate 13 05/26/25 13:20 Blood Pressure 145/89 05/26/25 13:04 Pulse Oximetry 96 05/26/25 13:20 Oxygen Delivery Me thod Room Air 05/26/25 13:04 MDM - Extremity (Nontraumatic) Medical Decision Making Right intertrochanteric hip fracture. She is not on any anticoagulants she does take aspirin just history nonischemic cardiomyopathy her last echocardiogram in December 2019 had a 10 to 15% ejection fraction. She has no sign of decompensated heart failure at this time. No other injuries related to the fall. She denies striking her head or loss of consciousness. Discussed with Dr. Sadler he will see the patient will admit to Dr. Cole. Medical Records I reviewed the patient's medical records. Lab Data I reviewed the patient's lab results. 05/26/25 12:27 05/26/25 12:27 Radiology Impressions Hip/Pelvis X-Ray 05/26/25 12:02 IMPRESSION: Intertrochanteric hip fracture as above. Chest X-Ray 05/26/25 12:14 IMPRESSION: No focal or diffuse airspace disease. Laboratory Results WBC 6.83 10^3/uL (3.29-11.43) 05/26/25 12:27 RBC 4.31 10^6/uL (3.85-5.65) 05/26/25 12:27 Hgb 12.90 g/dL (11.27-16.99) 05/26/25 12:27 Hct 41.8 % (36-47) 05/26/25 12:27 MCV 97.0 fl (85-98) 05/26/25 12:27 MCH 29.9 pg (27-33) 05/26/25 12:27 MCHC 30.9 g/dL (30-55) 05/26/25 12:27 RDW 12.6 % (12.1-15.1) 05/26/25 12:27 Plt Count 182 10^3/cmm (157-399) 05/26/25 12: MPV 10.3 fL (7.4-10.4) 05/26/25 12: Neut % (Auto) 74.0 % 05/26/25 12: Lymph % (Auto) 17.1 % 05/26/25 12: [place] % (Auto) 5.9 % 05/26/25 12: Eos % (Auto) 2.0 % 05/26/25 12: Baso % (Auto) 0.7 % 05/26/25 12: Neut # (Auto) 5.05 10^3/uL (1.8-7.7) 05/26/25 12: Lymph # (Auto) 1.2 10^3/uL (0.8-4.8) 05/26/25 12: [place] # (Auto) 0.4 10^3/uL (0.2-0.9) 05/26/25 12: Eos # (Auto) 0.1 10^3/uL (0.0-0.8) 05/26/25 12: Baso # (Auto) 0.1 10^3/uL (0.0-0.1) 05/26/25 12: Nucleated RBC % (auto) 0 % 05/26/25 12: Nucleated RBCs # 0.0 /100WBC 05/26/25 12: Sodium 143 mmol/L (136-145) 05/26/25 12: Potassium 4.6 mmol/L (3.5-5.1) 05/26/25 12: Chloride 106 mmol/L (98-107) 05/26/25 12: Carbon Dioxide 30 mmol/L (22-29) H 05/26/25 12: Anion Gap 11.6 (5-19) 05/26/25 12: BUN 23 mg/dL (8-23) 05/26/25 12: Creatinine 1.3 mg/dL (0.5-0.9) H 05/26/25 12:27 GFR Calculation Not Reportable 05/26/25 12: Glucose 96 mg/dL (65-115) 05/26/25 12: Calculated Osmolality 300 mOsm/kg (285-295) H 05/26/25 12:27 Calcium 9.4 mg/dL (8.5-10.5) 05/26/25 12:27 Total Bilirubin 0.3 mg/dL (0.15-1.2) 05/26/25 12:27 AST 23 U/L (0-32) 05/26/25 12:27 ALT 23 U/L (0-33) 05/26/25 12:27 Alkaline Phosphatase 98 U/L (35-105) 05/26/25 12:27 Total Protein 7.1 g/dL (6.6-8.7) 05/26/25 12:27 Albumin 4.2 g/dL (3.5-5.2) 05/26/25 12:27 Globulin 2.9 g/dL (1.3-4.6) 05/26/25 12:27 All radiology interpretation(s) finalized by discharge ED provider radiology interpretation(s): Right intertrochanteric hip fracture EKG Data EKG 1: Interpretation: EKG 05/26/2025 1304 paced rhythm [address] changes nothing that meet Sgarbossa's criteria. No significant changeCompared to EKG 02/08/2020 Discharge Plan Discharge Patient Disposition: Admitted As Inpatient Admit Provider: Tanner Cole Clinical Impression: Closed intertrochanteric fracture of right hip, CHF (congestive heart failure), Cardiomyopathy, nonischemic Condition: Stable Coding Level of Care Code ED Interventional Radiology Tech for Filomena Mas
--- NOTE | 2025-05-26 12:14 | XRR_ITS ---
PROCEDURE INFORMATION: Exam: XR Chest Exam date and time: 05/26/2025 12:42 PM Age: 74 years old Clinical indication: Cough and dyspnea; Additional info: Dyspnea/cough TECHNIQUE: Imaging protocol: Radiologic exam of the chest. Views: 1 view. COMPARISON: CR (CHEST, ) 02/08/2020 5:44 PM FINDINGS: Tubes, catheters and devices: Unchanged appearance of the ICD. Lungs: No focal or diffuse airspace disease. Pleural spaces: Unremarkable. No pleural effusion. No pneumothorax. Heart/Mediastinum: Unremarkable. No cardiomegaly. Bones/joints: Partial visualization deformity and postsurgical changes right humerus. Old left rib fractures. XR/XR chest 1V portable [id number] IMPRESSION: No focal or diffuse airspace disease.
[2025-05-26] MEDS: morphine 4 mg/mL SDV 1 mL IVP ×3 (12:30→16:21)
[2025-05-26 12:58] LABS: Hematocrit 41.8 % (36-47); Hemoglobin 12.90 g/dL (11.27-16.99); Mean Corpuscular HGB Conc 30.9 g/dL (30-55); Mean Corpuscular Hemoglobin 29.9 pg (27-33); Mean Corpuscular Volume 97.0 fl (85-98); Nucleated Red Blood Cells % 0 %; Platelet Count 182 10^3/cmm (157-399); Red Blood Count 4.31 10^6/uL (3.85-5.65); White Blood Count 6.83 10^3/uL (3.29-11.43)
--- NOTE | 2025-05-26 13:04 | ECG_ITS ---
[facility]: 2025-05-26 Pat Name: Lilo Adame Department: Room: 260 Gender: Female Project Management Professor: : 1950 Requested By: Tashi San Order Number: [id number] Hair MD: Howard Arango M.D. Measurements Intervals [place] Rate: 59 P: -40 NM: 114 QRS: 78 QRSD: 116 T: 93 QT: 427 QTc: 426 Interpretive Statements ELECTRONIC ATRIAL PACEMAKER ELECTRONIC VENTRICULAR PACEMAKER ABNORMAL RHYTHM ECG Compared to ECG 02/08/2020 19:30:10 No significant changes Electronically Signed On 05-28-2025 09:49:36 RN DELIVERY by Howard Arango M.D. [email or web address]
[2025-05-26 13:17] LABS: Alanine Aminotransferase 23 U/L (0-33); Albumin Level 4.2 g/dL (3.5-5.2); Alkaline Phosphatase 98 U/L (35-105); Anion Gap 11.6 (5-19); Aspartate Amino Transferase 23 U/L (0-32); Blood Urea Nitrogen 23 mg/dL (8-23); Calcium 9.4 mg/dL (8.5-10.5); Carbon Dioxide 30 mmol/L (22-29); Chloride 106 mmol/L (98-107); Globulin 2.9 g/dL (1.3-4.6); Glucose 96 mg/dL (65-115); Osmolality Calculated 300 mOsm/kg (285-295); Potassium 4.6 mmol/L (3.5-5.1); Sodium 143 mmol/L (136-145); Total Protein 7.1 g/dL (6.6-8.7)
[2025-05-26 13:18] LABS: Glucose Urine UA 2+ (Normal); Nitrate Urine Negative (Negative); Specific Gravity, Urine 1.008 (1.005-1.030)
--- NOTE | 2025-05-26 13:19 | PC.OT ---
Orders received for OT orders; will attempt evaluation after ortho recommendations.
[2025-05-26 13:20] LABS: Add Urine Microscopic? YES
[2025-05-26 13:34] LABS: Magnesium 2.6 mg/dL (1.7-2.3)
[2025-05-26 13:37] LABS: Estmated Average Glucose 105; Hemoglobin A1C 5.3 % (4.0-6.0)
--- NOTE | 2025-05-26 13:42 | PM.CONSULT ---
Providers/Reason For Consult Consulting Physician/Specialty*: Hospitalist Reason for Consult*: Medical Management Requesting Physician: Dr. John Johnson Attending Physician: Cherelle Slaughter, PREDICTIVE MAINTENANCE SPECIALIST, CARTON INSPECTOR Primary Care Provider: Grant Barger History of Present Illness History of Present Illness Lilo Adame is a 74 year old female with pmhx CHF, TIA, PTSD, vertigo, head injury, fractures, sacroiliitis, anxiety, chronic migraine, and nonischemic cardiomyopathy presenting with complaints of right hip pain secondary to fall. This was a mechanical fall after tripping on a rug. In this incident she denies no head injury or loss of consciousness. She was unable to stand. Patient presented to [facility] ED for assessment where imaging revealed a right hip fracture. Orthopedic surgery consulted, Dr. Johnson, recommendations appreciated. Will admit to the hospital service for further evaluation and treatment. Planning for surgery in the AM. In the ED, BP 135/85, HR 69, RR 18, O2 sat 96%, T97.8. CBC unremarkable. Creatinine 1.3, BUN 23. AST/ALT WNL. A1c WNL 5.3. Room air. Urinalysis; 2+ glucose, 1+ leukocytes, no bacteria seen. Right hip x-ray; intertrochanteric hip fracture-minimally displaced anterior trochanteric fracture with which extends inferiorly to involve the base of the lesser trochanter without significant displacement of the lesser trochanter, see full results. Review of Systems Const: Denies: fever(s) or chills Card: Denies: chest pain Resp: Denies: dyspnea GI: Denies: abdominal pain : Denies: dysuria, urinary frequency or urinary urgency Musc: Reports: joint pain; Denies: neck pain or back pain Skin/Breast: Denies: rash Medications/Allergies Home Medications ?Medication ?Instructions ?Recorded ?Confirmed ?Last Taken ?Type bupropion HCl 300 mg 24 hr tablet, 300 mg PO QAM 09/05/19 05/26/25 05/26/25 09:00 History extended release carvedilol 6.25 mg tablet 6.25 mg PO DAILY 09/05/19 05/26/25 05/26/25 09:00 History promethazine 12.5 mg tablet 12.5 mg PO Q6H PRN Nausea 09/05/19 05/26/25 Unknown History Carbon fiber #1 ea 10/03/19 05/26/25 Unknown Rx potassium chloride 10 mEq 10 meq PO BID #60 caps 12/10/19 05/26/25 05/26/25 09:00 Rx capsule,extended release aspirin 81 mg tablet,delayed 81 mg PO DAILY 04/29/21 05/26/25 05/26/25 09:00 History release (Adult Aspirin Regimen) bumetanide 0.5 mg tablet 0.5 mg PO DAILY 04/29/21 05/26/25 05/26/25 09:00 History sacubitril 24 mg-valsartan 26 mg 1 tab PO BID 04/29/21 05/26/25 05/26/25 09:00 History tablet (Entresto) acetaminophen 650 mg 650 - 1,300 mg PO Q8H PRN Fever Or 05/26/25 05/26/25 Unknown History tablet,extended release (Tylenol 8 Pain Hour) atorvastatin 40 mg tablet 40 mg PO BEDTIME 05/26/25 05/26/25 05/25/25 19:00 History cyclobenzaprine 10 mg tablet 10 mg PO TID PRN Spasms 05/26/25 05/26/25 05/25/25 History empagliflozin 10 mg tablet 10 mg PO QAM 05/26/25 05/26/25 05/26/25 History (Jardiance) famotidine 10 mg tablet 10 mg PO BID 05/26/25 05/26/25 05/26/25 08:00 History fluticasone propionate 50 2 spray intranasal DAILY 05/26/25 05/26/25 05/25/25 History mcg/actuation nasal spray,suspension gamma-aminobutyric acid 250 mg 250 mg PO BEDTIME 05/26/25 05/26/25 05/25/25 19:00 History capsule meclizine 12.5 mg tablet 12.5 mg PO TID PRN dizziness or 05/26/25 05/26/25 Unknown History nausea nitroglycerin 0.4 mg sublingual 0.4 mg sublingual PRN PRN Chest 05/26/25 05/26/25 Unknown History tablet Pain pantoprazole 20 mg tablet,delayed 20 mg PO DAILY 05/26/25 05/26/25 05/26/25 09:00 History release spironolactone 25 mg tablet 25 mg PO DAILY 05/26/25 05/26/25 Unknown History trazodone 50 mg tablet 50 - 100 mg PO BEDTIME 05/26/25 05/26/25 Unknown History Allergies Allergy/AdvReac Type Severity Reaction Status Date / Time ondansetron Allergy ADR-Nausea Verified 03/06/25 11:37 prochlorperazine (From Allergy Muscle Verified 03/06/25 11:37 Compazine) Contraction Current Medications Generic Name Dose Route Start Last Admin Trade Name Freq PRN Reason Stop Dose Admin Morphine Sulfate 4 mg 05/26/25 13:08 05/26/25 13:20 Morphine 4 Mg/Ml Sdv 1 Ml IVP 4 mg Q4H PRN Administration SEVERE PAIN PFSH Acute PFSH: Medical History Anxiety Depression Chronic migraine without aura, intractable, with status migrainosus Osteoarthritis PTSD (post-traumatic stress disorder) Hx of fracture of humerus Hx of head injury Non-ischemic cardiomyopathy CHF (congestive heart failure) Surgical History History of breast augmentation History of appendectomy History of hysterectomy History of tonsillectomy Family History Other Acute depression Cancer Chronic migraine without aura, intractable, with status migrainosus Stroke Social History Smoking and tobacco/nicotine status: never used tobacco/nicotine Vitals/I&O/Wt Last Vital Signs Temp 97.8 F 05/26/25 12:01 Pulse 60 05/26/25 13:04 Resp 13 05/26/25 13:20 BP 145/89 05/26/25 13:04 Pulse Ox 96 05/26/25 13:20 O2 Del Method Room Air 05/26/25 13:04 Weight last 48 hrs Weight 49.895 kg Physical Exam Narrative: Alert and oriented x 3 Head is normocephalic atraumatic Respirations are intact No evidence of any rashes or infection 5/5 strength in bilateral upper and lower extremities Sensation intact in all extremities Pain in right hip area Urinary Catheter Management: Dorantes: Cath Placed During This Visit: yes Urinary Catheter Date of Insertion: 05/26/25 Urinary Catheter Time of Insertion: 12:58 Data 05/26/25 12:27 05/26/25 12:27 A&P Assessment and plan 1. Closed intertrochanteric fracture of right hip: Right hip x-ray; intertrochanteric hip fracture-minimally displaced anterior trochanteric fracture with which extends inferiorly to involve the base of the lesser trochanter without significant displacement of the lesser trochanter, see full results Pain management PT/OT Fall risk precautions Ortho consulted, Dr. Johnson, recommendations appreciated Surgery scheduled Immobilization, Bedrest Urinary catheter Regular diet NPO at midnight 2. Falls: Imaging to right hip as above Denies head injury or LOC Falls precaution 3. Hypokalemia: K+ 3.3, Mag 2.6 Replete K+ Telemetry EKG 4. CHF (congestive heart failure): BUN 20, creatinine 1.4 BNP 9446 Trop 18 > 15 12/2019 echocardiogram; nonischemic cardiomyopathy, EF 10-15% I&O Monitor labs 5. HTN (hypertension): BP 135/85 > 145/89 > 134/73 Continue home carvedilol, Lipitor 6. Anxiety: Anxiety, PTSD, and depression Continue home bupropion PDMP PDMP Reviewed: Not Reviewed Diagnoses Closed intertrochanteric fracture of right hip S72.141A Falls R29.6 Hypokalemia E87.6 CHF (congestive heart failure) I50.9 HTN (hypertension) I10 Anxiety F41.9 Time Spent (min) 70
[2025-05-26] MEDS: pantoprazole 40 mg SDV IVP (14:37)
--- NOTE | 2025-05-26 15:32 | PM.CONSULT ---
Providers/Reason For Consult Consulting Physician/Specialty*: Hospitalist Reason for Consult*: Right hip fracture Attending Physician: Cherelle Slaughter, CUSTOM FEED MILL OPERATOR HELPER, AUTOMOBILE SERVICE STATION ATTENDANT Primary Care Provider: Grant Barger History of Present Illness History of Present Illness Lilo Adame is a 74 year old female patient fell today on the concrete. Sustained a right intertrochanteric hip fracture. We were consulted for the right intertrochanteric hip fracture. Pain is only located in the right hip. Does not radiate. Hurts with movement. Review of Systems Const: Denies: fever(s) or chills Card: Denies: chest pain Resp: Denies: dyspnea GI: Denies: abdominal pain : Denies: dysuria, urinary frequency or urinary urgency Musc: Reports: joint pain; Denies: neck pain or back pain Skin/Breast: Denies: rash Medications/Allergies Home Medications ?Medication ?Instructions ?Recorded ?Confirmed ?Last Taken ?Type bupropion HCl 300 mg 24 hr tablet, 300 mg PO QAM 09/05/19 05/26/25 05/26/25 09:00 History extended release carvedilol 6.25 mg tablet 6.25 mg PO DAILY 09/05/19 05/26/25 05/26/25 09:00 History promethazine 12.5 mg tablet 12.5 mg PO Q6H PRN Nausea 09/05/19 05/26/25 Unknown History Carbon fiber #1 ea 10/03/19 05/26/25 Unknown Rx potassium chloride 10 mEq 10 meq PO BID #60 caps 12/10/19 05/26/25 05/26/25 09:00 Rx capsule,extended release aspirin 81 mg tablet,delayed 81 mg PO DAILY 04/29/21 05/26/25 05/26/25 09:00 History release (Adult Aspirin Regimen) bumetanide 0.5 mg tablet 0.5 mg PO DAILY 04/29/21 05/26/25 05/26/25 09:00 History sacubitril 24 mg-valsartan 26 mg 1 tab PO BID 04/29/21 05/26/25 05/26/25 09:00 History tablet (Entresto) acetaminophen 650 mg 650 - 1,300 mg PO Q8H PRN Fever Or 05/26/25 05/26/25 Unknown History tablet,extended release (Tylenol 8 Pain Hour) atorvastatin 40 mg tablet 40 mg PO BEDTIME 05/26/25 05/26/25 05/25/25 19:00 History cyclobenzaprine 10 mg tablet 10 mg PO TID PRN Spasms 05/26/25 05/26/25 05/25/25 History empagliflozin 10 mg tablet 10 mg PO QAM 05/26/25 05/26/25 05/26/25 History (Jardiance) famotidine 10 mg tablet 10 mg PO BID 05/26/25 05/26/25 05/26/25 08:00 History fluticasone propionate 50 2 spray intranasal DAILY 05/26/25 05/26/25 05/25/25 History mcg/actuation nasal spray,suspension gamma-aminobutyric acid 250 mg 250 mg PO BEDTIME 05/26/25 05/26/25 05/25/25 19:00 History capsule meclizine 12.5 mg tablet 12.5 mg PO TID PRN dizziness or 05/26/25 05/26/25 Unknown History nausea nitroglycerin 0.4 mg sublingual 0.4 mg sublingual PRN PRN Chest 05/26/25 05/26/25 Unknown History tablet Pain pantoprazole 20 mg tablet,delayed 20 mg PO DAILY 05/26/25 05/26/25 05/26/25 09:00 History release spironolactone 25 mg tablet 25 mg PO DAILY 05/26/25 05/26/25 Unknown History trazodone 50 mg tablet 50 - 100 mg PO BEDTIME 05/26/25 05/26/25 Unknown History Allergies Allergy/AdvReac Type Severity Reaction Status Date / Time ondansetron Allergy ADR-Nausea Verified 03/06/25 11:37 prochlorperazine (From Allergy Muscle Verified 03/06/25 11:37 Compazine) Contraction Current Medications Generic Name Dose Route Start Last Admin Trade Name Freq PRN Reason Stop Dose Admin Morphine Sulfate 4 mg 05/26/25 13:08 05/26/25 13:20 Morphine 4 Mg/Ml Sdv 1 Ml IVP 4 mg Q4H PRN Administration SEVERE PAIN Pantoprazole Sodium 40 mg 05/26/25 13:15 05/26/25 14:37 Pantoprazole 40 Mg Sdv IVP 40 mg Q24H KEYLA Administration PFSH Acute PFSH: Medical History (Updated 05/26/25 @ 13:27 by Tashi Garcia DO) Anxiety Depression Chronic migraine without aura, intractable, with status migrainosus Osteoarthritis PTSD (post-traumatic stress disorder) Hx of fracture of humerus Hx of head injury Non-ischemic cardiomyopathy CHF (congestive heart failure) Surgical History History of breast augmentation History of appendectomy History of hysterectomy History of tonsillectomy Family History Other Acute depression Cancer Chronic migraine without aura, intractable, with status migrainosus Stroke Social History Smoking and tobacco/nicotine status: never used tobacco/nicotine Vitals/I&O/Wt Last Vital Signs Temp 97.4 F L 05/26/25 14:03 Pulse 66 05/26/25 14:03 Resp 18 05/26/25 14:03 BP 131/83 05/26/25 14:03 Pulse Ox 98 05/26/25 13:41 O2 Del Method Room Air 05/26/25 14:03 Weight last 48 hrs Weight 116 lb 9.992 oz Weight 110 lb Physical Exam Narrative: Alert and oriented x 3 Head is normocephalic atraumatic Respirations are intact No evidence of any rashes or infection 5/5 strength in bilateral upper and lower extremities Sensation intact in all extremities Pain in right hip area Urinary Catheter Management: Dorantes: Cath Placed During This Visit: yes Urinary Catheter Date of Insertion: 05/26/25 Urinary Catheter Time of Insertion: 12:58 Data 05/26/25 12:27 05/26/25 12:27 A&P Assessment and plan 1. Closed intertrochanteric fracture of right hip: Right hip nail planned for tomorrow morning PDMP PDMP Reviewed: Not Reviewed Consult Attestations Medical Necessity Statement: Per primary service Coding Level of Care Code Acute Code for Chg Fwd Diagnoses Closed intertrochanteric fracture of right hip S72.141A
[2025-05-26] MEDS: HYDROmorphone 0.5 MG/0.5 ML INJ IVP ×2 (18:02→22:07)
[2025-05-26] MEDS: blistex lip oint 7 gm Tube 1 APPLIC TOPICAL (22:36)
[2025-05-27] VITALS (24 sets, daily range): BP systolic 92–130; BP diastolic 50–77; PULSE 63–93; RESP 14–20; TEMP 36.2–36.8; O2SAT 91–99
[2025-05-27] MEDS: morphine 4 mg/mL SDV 1 mL IVP (01:10)
[2025-05-27] MEDS: HYDROmorphone 0.5 MG/0.5 ML INJ IVP (02:53)
[2025-05-27 04:11] LABS: Hematocrit 38.6 % (36-47); Hemoglobin 12.10 g/dL (11.27-16.99); Mean Corpuscular HGB Conc 31.3 g/dL (30-55); Mean Corpuscular Hemoglobin 30.6 pg (27-33); Mean Corpuscular Volume 97.7 fl (85-98); Nucleated Red Blood Cells % 0 %; Platelet Count 153 10^3/cmm (157-399); Red Blood Count 3.95 10^6/uL (3.85-5.65); White Blood Count 8.18 10^3/uL (3.29-11.43)
[2025-05-27 04:28] LABS: Anion Gap 16.3 (5-19); Blood Urea Nitrogen 17 mg/dL (8-23); Calcium 8.6 mg/dL (8.5-10.5); Carbon Dioxide 22 mmol/L (22-29); Chloride 102 mmol/L (98-107); Glucose 102 mg/dL (65-115); Osmolality Calculated 284 mOsm/kg (285-295); Potassium 4.3 mmol/L (3.5-5.1); Sodium 136 mmol/L (136-145)
--- NOTE | 2025-05-27 06:29 | P.HPUD_ITS ---
Surgery/Procedure H&P Update DATE OF PROCEDURE: May 27, 2025 DATE H&P PERFORMED: 05/26/25 H&P UPDATE INFORMATION: I have reviewed H&P completed within last 30 days, I have examined patient prior to procedure and No changes to prior documentation PLANNED PROCEDURE: Operation Date: 05/27/25 07:00 Proposed Procedures p Trochanteric Femoral Nail Intertrochanteric Femoral Nail Insertion(Right) - Phani Johnson DO
--- NOTE | 2025-05-27 07:16 | ANES.PREANE2 ---
Pre-Anesthetic Assessment Height/Weight: Height 5 ft 8 in Weight 115 lb Temp Pulse Resp BP Pulse Ox O2 Del Method 98.3 F 92 20 H 130/71 97 Room Air 05/27/25 06:23 05/27/25 06:23 05/27/25 06:23 05/27/25 06:23 05/27/25 06:23 05/27/25 06:23 Preop Diagnosis: Hip fracture Operation Date: 05/27/25 07:00 Proposed Procedures p Trochanteric Femoral Nail Intertrochanteric Femoral Nail Insertion(Right) - John Johnson, DO Was Beta Hafsa taken within 24 hours: Yes Was Clonidine taken within 24 hours: N/A Last intake: Intake Last Liquid Date 05/27/25 Last Liquid Time 00:00 Last Solid Date 05/26/25 Last Solid Time 09:00 Social No alcohol and No tobacco Exam alert, oriented x 3 and regular rate & rhythm Airway Submandibular: within normal limits Cervical ROM: within normal limits Mallampati: Class II Dentition: full Anesthetic Plan ASA status: 4 Anesthesia: General Other: No prior issues with anesthesia NPO since yesterday evening History of hypertension on carvedilol and sacubitril?valsartan as well as spironolactone Significant CAD history, s/p PCI as well as ICD placed 5 years ago following her stroke. Upon patient questioning, she takes Plavix daily. Last taken yesterday morning. This is not documented in the ED notes nor on the medication list however patient's confirms that she does take Plavix daily Labs reviewed and acceptable for procedure Patient states that she is able to get around okay but does admit to SOB with significant exertion Patient follows with cardiology at [facility] Plan for general anesthesia Medications/Allergies Home Medications ?Medication ?Instructions ?Recorded ?Confirmed ?Last Taken ?Type bupropion HCl 300 mg 24 hr tablet, 300 mg PO QAM 09/05/19 05/26/25 05/26/25 09:00 History extended release carvedilol 6.25 mg tablet 6.25 mg PO DAILY 09/05/19 05/26/25 05/26/25 09:00 History promethazine 12.5 mg tablet 12.5 mg PO Q6H PRN Nausea 09/05/19 05/26/25 Unknown History Carbon fiber #1 ea 10/03/19 05/26/25 Unknown Rx potassium chloride 10 mEq 10 meq PO BID #60 caps 12/10/19 05/26/25 05/26/25 09:00 Rx capsule,extended release aspirin 81 mg tablet,delayed 81 mg PO DAILY 04/29/21 05/26/25 05/26/25 09:00 History release (Adult Aspirin Regimen) bumetanide 0.5 mg tablet 0.5 mg PO DAILY 04/29/21 05/26/25 05/26/25 09:00 History sacubitril 24 mg-valsartan 26 mg 1 tab PO BID 04/29/21 05/26/25 05/26/25 09:00 History tablet (Entresto) acetaminophen 650 mg 650 - 1,300 mg PO Q8H PRN Fever Or 05/26/25 05/26/25 Unknown History tablet,extended release (Tylenol 8 Pain Hour) atorvastatin 40 mg tablet 40 mg PO BEDTIME 05/26/25 05/26/25 05/25/25 19:00 History cyclobenzaprine 10 mg tablet 10 mg PO TID PRN Spasms 05/26/25 05/26/25 05/25/25 History empagliflozin 10 mg tablet 10 mg PO QAM 05/26/25 05/26/25 05/26/25 History (Jardiance) famotidine 10 mg tablet 10 mg PO BID 05/26/25 05/26/25 05/26/25 08:00 History fluticasone propionate 50 2 spray intranasal DAILY 05/26/25 05/26/25 05/25/25 History mcg/actuation nasal spray,suspension gamma-aminobutyric acid 250 mg 250 mg PO BEDTIME 05/26/25 05/26/25 05/25/25 19:00 History capsule meclizine 12.5 mg tablet 12.5 mg PO TID PRN dizziness or 05/26/25 05/26/25 Unknown History nausea nitroglycerin 0.4 mg sublingual 0.4 mg sublingual PRN PRN Chest 05/26/25 05/26/25 Unknown History tablet Pain pantoprazole 20 mg tablet,delayed 20 mg PO DAILY 05/26/25 05/26/25 05/26/25 09:00 History release spironolactone 25 mg tablet 25 mg PO DAILY 05/26/25 05/26/25 Unknown History trazodone 50 mg tablet 50 - 100 mg PO BEDTIME 05/26/25 05/26/25 Unknown History Allergies Allergy/AdvReac Type Severity Reaction Status Date / Time ondansetron Allergy ADR-Nausea Verified 03/06/25 11:37 prochlorperazine (From Allergy Muscle Verified 03/06/25 11:37 Compazine) Contraction Current Medications Generic Name Dose Route Start Last Admin Trade Name Freq PRN Reason Stop Dose Admin Atorvastatin Calcium 40 mg 05/26/25 21:00 05/26/25 21:15 Atorvastatin 40 Mg Tablet PO 40 mg On Hold: 05/27/25 06:21 BEDTIME KEYLA Administration Comment: Order held by Process Transfer Bumetanide 0.5 mg 05/27/25 05:00 05/27/25 05:54 Bumetanide 1 Mg Tablet PO 0.5 mg On Hold: 05/27/25 06:21 DAILY KEYLA Administration Comment: Order held by Process Transfer Bupropion HCl 300 mg 05/27/25 05:00 05/27/25 05:54 Bupropion Xl (24 Hr) 300 Mg Tablet PO 300 mg On Hold: 05/27/25 06:21 QAM KEYLA Administration Comment: Order held by Process Transfer Camphor/Menthol/Phenol 1 applic 05/26/25 22:11 05/26/25 22:36 Blistex Lip Oint 7 Gm Tube TOPICAL 1 applic On Hold: 05/27/25 06:21 PRN PRN Administration Comment: Order held by Process DRYNESS Transfer Carvedilol 6.25 mg 05/27/25 05:00 05/27/25 05:54 Carvedilol 6.25 Mg Tablet PO 6.25 mg On Hold: 05/27/25 06:21 DAILY KEYLA Administration Comment: Order held by Process Transfer Docusate Sodium 100 mg 05/26/25 21:00 05/26/25 21:15 Docusate Sodium 100 Mg Capsule PO 100 mg On Hold: 05/27/25 06:21 BEDTIME KEYLA Administration Comment: Order held by Process Transfer Fluticasone Propionate 2 spray 05/27/25 05:00 05/27/25 03:48 Fluticasone Nasal [place] 16gm Btl INTRANASAL Not Given On Hold: 05/27/25 06:21 DAILY KEYLA Comment: Order held by Process Transfer Sodium Chloride 1,000 mls @ 30 mls/hr 05/27/25 06:30 05/27/25 06:39 Sodium Chloride 0.9% IV 05/28/25 06:29 30 mls/hr .Q24H KYELA Administration Morphine Sulfate 4 mg 05/26/25 13:08 05/27/25 01:10 Morphine 4 Mg/Ml Sdv 1 Ml IVP 4 mg On Hold: 05/27/25 06:21 Q4H PRN Administration Comment: Order held by Process SEVERE PAIN Transfer Pantoprazole Sodium 40 mg 05/26/25 13:15 05/26/25 14:37 Pantoprazole 40 Mg Sdv IVP 40 mg On Hold: 05/27/25 06:21 Q24H KEYLA Administration Comment: Order held by Process Transfer Polyethylene Glycol 17 gm 05/27/25 05:00 05/27/25 03:48 Polyethylene Glycol 3350 Pkt 17 Gm PO Not Given On Hold: 05/27/25 06:21 BID KEYLA Comment: Order held by Process Transfer Potassium Chloride 10 meq 05/26/25 17:00 05/27/25 05:54 Potassium Chloride Er 10 Meq Tablet PO 10 meq On Hold: 05/27/25 06:21 BID KEYLA Administration Comment: Order held by Process Transfer Sacubitril/Valsartan 1 each 05/26/25 17:00 05/27/25 05:54 Sacubitril/Valsartan 24-26 Mg Tablet PO 1 each On Hold: 05/27/25 06:21 BID KEYLA Administration Comment: Order held by Process Transfer [facility] Anesthesia Medical History (Updated 05/26/25 @ 20:27 by CONCHA Branch, AGRICULTURAL ENGINEERING TECHNICIAN) Anxiety Depression Chronic migraine without aura, intractable, with status migrainosus Osteoarthritis PTSD (post-traumatic stress disorder) Hx of fracture of humerus Hx of head injury Non-ischemic cardiomyopathy CHF (congestive heart failure) Surgical History History of breast augmentation History of appendectomy History of hysterectomy History of tonsillectomy Family History Other Acute depression Cancer Chronic migraine without aura, intractable, with status migrainosus Stroke Social History (Reviewed 05/26/25 @ 20:25 by Cherelle A Dankwa, COMMERCIAL CRABBER, AGRICULTURAL ENGINEERING TECHNICIAN) Smoking and tobacco/nicotine status: never used tobacco/nicotine Data Anesthesia 05/27/25 03:55 05/27/25 03:55 Short CBC 05/26/25 05/27/25 Range/Units 12:27 03:55 WBC 6.83 8.18 (3.29-11.43) 10^3/uL Hgb 12.90 12.10 (11.27-16.99) g/dL Hct 41.8 38.6 (36-47) % MCV 97.0 97.7 (85-98) fl Plt Count 182 153 L (157-399) 10^3/cmm Neut % (Auto) 74.0 70.6 % Neut # (Auto) 5.05 5.78 (1.8-7.7) 10^3/uL BMP 05/26/25 05/27/25 12:27 03:55 Sodium 143 136 Potassium 4.6 4.3 Chloride 106 102 Carbon Dioxide 30 H 22 BUN 23 17 Creatinine 1.3 H 1.1 H Glucose 96 102 Calcium 9.4 8.6 Liver Function 05/26/25 Range/Units 12:27 Total Bilirubin 0.3 (0.15-1.2) mg/dL AST 23 (0-32) U/L ALT 23 (0-33) U/L Alkaline Phosphatase 98 (35-105) U/L Albumin 4.2 (3.5-5.2) g/dL Urine 05/26/25 Range/Units 13:06 Urine Color Yellow (Yellow) Urine Appearance Clear (CLEAR) Urine pH 6.0 (5-7) Ur Specific [place] 1.008 (1.005-1.030) Urine Protein Negative (Negative) Urine Glucose (UA) 2+ H (Normal) Urine Ketones Negative (Negative) Urine Nitrate Negative (Negative) Urine Bilirubin Negative (Negative) Ur Leukocyte Esterase 1+ A (Negative) Urine RBC 0-2 (0-2) /hpf Urine WBC 0-5 (0-5) /hpf Cardiac Studies: Echocardiogram Limited Views 12/25/19 Echocardiogram Ultrasound 10/17/19
[2025-05-27] MEDS: ceFAZolin 2,000 mg SDV 2000 MG IVP ×2 (07:23→14:54)
--- NOTE | 2025-05-27 07:49 | PC.OT ---
OT EVALUATION ORDERS RECEIVED; SURGERY SCHEDULED FOR TODAY. WILL ATTEMPT EVALUATION TOMORROW
--- NOTE | 2025-05-27 08:21 | PM.OP ---
Operative Report Date of procedure: May 27, 2025 Pre-op diagnosis: Right intertrochanteric hip fracture Post-op diagnosis: same Procedure done: Right intramedullary hip nail Surgeon: John Johnson DO Estimated blood loss (mL): 5 Procedure: Right intramedullary hip nail Patient brought to the procedure after an G[place] was placed in the supine position on the fracture table. Preop x-rays were taken and showed the fracture was reduced. Once the fracture was reduced patient was prepped and draped normal sterile fashion. Skin's was made proximal to the greater trochanter. Starting pin was inserted. The opening reamer was inserted. The nail was then inserted. The lag screw was then wire was placed and was measured to be a 90. This was drilled. A size 90 screw was placed locked in position proximal. 1 turn was taken off the locking screw proximally. And then a distal screw was placed this was 35 mm. AP lateral fluoroscopy ensured that the fracture and hardware in good position. Wounds were irrigated and closed with Vicryl and Monocryl. Sterile dressings were applied and patient transferred to the PACU in stable condition.
--- NOTE | 2025-05-27 08:32 | XR_ITS ---
WS: [id number] XR hip RT 2-3V wo/w pel* [id number] REASON FOR EXAM: or pic, orif FINDINGS: Short intramedullary abdirahman and large femoral neck nail fixation of intertrochanteric fracture. Surgical appliances are intact and in proper position and alignment. Fracture fragments are in good apposition and alignment. XR/XR hip RT 2-3V wo/w pel* [id number] IMPRESSION: Right hip fracture with internal fixation without abnormality.
--- NOTE | 2025-05-27 08:55 | ANE.PACU2 ---
Inpatient post-anesthesia follow up: Airway intact: Yes Vital signs: Temperature 97.3 F Pulse Rate 66 Respiratory Rate 14 Blood Pressure 93/56 Pulse Oximetry 95 Oxygen Delivery Me thod [ Room Air Current Rate & Del dora] Oxygen Delivery Me thod Room Air Oxygen Flow Rate Fraction of Inspir ed Oxygen Hydration adequate: Yes Nausea and vomiting: No Pain level: 1 Mental status: Baseline
--- NOTE | 2025-05-27 09:07 | P.PN_ITS ---
Subjective 2 Subjective: Patient is a pleasant pleasant 74-year-old female seen and examined at bedside on hospital rounds this morning. Patient status post right hip surgical interventions with right intramedullary hip nail by attending orthopedic surgeon . Patient is laying in bed stating right hip pain, nausea, and urge to have bowel movement. Patient denies new or worsening symptoms otherwise. Vital signs are stable. WBC 8.18, platelet count 153 -Will continue to monitor. Goals will be good bowel regimen, use of incentive spirometer, and working with physical therapy/Occupational Therapy. Patient will most likely need swing bed/SNF level of care on discharge. Will continue current interventions inpatient. All questions and concerns addressed with the patient and her spouse at the bedside today. Vitals/I&O/Wt Last Vital Signs Temp 97.1 F L 05/27/25 08:54 Pulse 90 05/27/25 08:54 Resp 16 05/27/25 08:54 BP 117/66 05/27/25 08:54 Pulse Ox 96 05/27/25 08:54 O2 Del Method Room Air 05/27/25 08:54 05/26/25 05/27/25 05/27/25 22:59 06:59 14:59 Intake Total 600 / 600 600 / 1200 0 / 0 Output Total 850 / 850 900 / 1750 10 / 10 Balance -250 / -250 -300 / -550 -10 / -10 Weight last 48 hrs Weight 52.163 kg Weight 52.9 kg Weight 49.895 kg Physical Exam 2 Narrative: Patient is a very pleasant 74-year-old female, laying in bed, with facial grimacing and right hip pain. Const: COMMON NORMALS: patient oriented x3 and well nourished HENMT: COMMON NORMALS: normocephalic, Normal external nose present and moist oral mucous membranes HEAD & SCALP: normocephalic NOSE: Normal external nose present Eye: COMMON NORMALS: Equal, round and reactive pupils present PUPIL: Yes Equal, round and reactive pupils present Neck/C-Spine: COMMON NORMALS: no JVD Resp: COMMON NORMALS: normal respiratory effort, No retractions and clear to auscultation bilaterally AUSCULTATION: clear to auscultation bilaterally Cardio: COMMON NORMALS: no JVD, S1 normal heart sound present and S2 normal heart sound present HEART SOUNDS: S1 normal heart sound present and S2 normal heart sound present GI: COMMON NORMALS: Normal to inspection, nondistended, normoactive bowel sounds present Extremity: COMMON NORMALS: no calf tenderness and no pedal edema OTHER: Right hip surgical incisions with no drainage, mild erythema/edema surrounding tissues. Large hematoma right hip. Neuro: COMMON NORMALS: patient oriented x3 and CN's II-XII intact bilaterally Psych: COMMON NORMALS: cooperative, normal affect and speech normal SPEECH: Yes normal speech Skin: NARRATIVE SKIN EXAM: Right hip surgical incisions clean/dry with no noticeable drainage, surrounding tissue with mild erythema/edema, skin warm no s/s of infection. Urinary Catheter Management: Dorantes: Cath Placed During This Visit: yes Reason for Continuing Indwelling Catheter: Perioperative Use in Selected Surgeries Urinary Catheter Date of Insertion: 05/26/25 Urinary Catheter Time of Insertion: 12:58 Data 05/27/25 03:55 05/27/25 03:55 A&P Assessment and plan 1. Closed intertrochanteric fracture of right hip: 2. Falls: 3. Hypokalemia: 4. CHF (congestive heart failure): 5. HTN (hypertension): 6. Anxiety: 7. Cardiomyopathy, nonischemic: 8. Chronic migraine without aura, intractable, with status migrainosus: Plan: Closed intertrochanteric fracture of right hip S/p right intramedullary hip nail 05/27/25 Falls - Right hip x-ray; intertrochanteric hip fracture-minimally displaced anterior trochanteric fracture with which extends inferiorly to involve the base of the lesser trochanter without significant displacement of the lesser trochanter - Appreciate continued management with Orthopedic surgeon - Fall precautions - Pending PT/OT evaluation and interventions - Multimodal pain control - Greatly appreciate case management consultation and discharge planning, will most likely need swing bed versus SNF at discharge - Bowel regimen - Encourage use of incentive spirometry Hypokalemia, resolved - Admitting K+ 3.3, Mag 2.6, potassium now 4.3 - Replenish as needed - Monitor CHF Cardiomyopathy Pacemaker/defibrillator -Continue cardioprotective medications including Bumex, statin, and carvedilol - BUN 17, Cr 1.1 - BNP 9446 - Trop 18 > 15 - 12/2019 echocardiogram; nonischemic cardiomyopathy, EF 10-15% - Monitor I&O - Euvolemic on admission Hypertension Hyperlipidemia - B/p 117/68 - Continue home carvedilol 6.25mg Daily, Lipitor 40mg nightly Anxiety/Depression PTST - Continue home bupropion 300mg Daily Chronic Migraine - Continue supportive measures VTE PPX: PPI GI PPX: Code Status: Allow natural PDMP PDMP Reviewed: Not Reviewed Attestations 2 Medical Necessity Statement*: Admission to inpatient greater than 2 midnights secondary to right hip fracture with need of orthopedic surgical interventions and continued management, PT/OT, and management of complex comorbidities while in the hospital. Coding Level of Care Code 50584 Diagnoses Closed intertrochanteric fracture of right hip S72.141A Falls R29.6 Hypokalemia E87.6 CHF (congestive heart failure) I50.9 HTN (hypertension) I10 Anxiety F41.9 Cardiomyopathy, nonischemic I42.8 Chronic migraine without aura, intractable, with status migrainosus G43.711
[2025-05-27] MEDS: HYDROcodone-acetaminophen 5-325 mg Tablet PO ×2 (09:23→16:54)
--- NOTE | 2025-05-27 10:15 | PC.CHAP ---
Pastoral Care Encounter/Spiritual Assessment Type of Contact [] Declined net developer consultant visit [] Patient/Family/Request visit [] Outpatient visit [] Follow-up visit [] Physician referral [] Code/Alert [x] Routine visit [] Staff referral [] Actively dying [] Patient sleeping [x] Family support [] [] Out of room [] Palliative care [] [] Receiving care in room [] Pre-surgical visit [] Trauma [] Long length of stay [] ICU visit [] Other: Relational/Emotional Strength [x] Patient feels connected with others/family/visitors/staff [] Distress [] Loneliness/isolation [] Abandonment Spirituality of Patient [x] Person of Rabia [] Attends Latter-Day of their Rabia [x] Believes in Prayer [] Reads Bible or Rastafarian materials [] There are Spiritual issues to be addressed Beauty Director Interventions [x] Prayer [x] Active listening [x] Non-anxious presence [x] Spiritual/emotional support [] Crisis/trauma care [] Spiritual counseling [] Bereavement support [] Provided bereavement packet [] Provided Bible/devotional materials [] Provided toy/stuffed animal, coloring book to patient or family member [] Provided Communion [] Anointing/[place] [] Salvation [x] Completed spiritual assessment [] Other: Impact on Illness or Injury [] Angry [] Fearful [] Anxious [] Often cries [] Exhaustion [] Unable to work [] Unable to attend bahai [] Unable to walk/stand [] Unable to read [] Unable to drive [] Unable to eat/drink [] Unable to sleep [] Unable to be with family [] Patient intubated [] Other: Summary Time spent with patient 5 min
[2025-05-27] MEDS: polyethylene glycol 3350 Pkt 17 gm PO ×2 (10:26→16:53)
[2025-05-27] MEDS: metoclopramide 5 mg/mL SDV 2 mL 10 MG IVP (12:51)
[2025-05-27] MEDS: pantoprazole 40 mg SDV IVP (12:51)
[2025-05-27] MEDS: Fleet Enema 133 mL Enema PR (17:45)
[2025-05-27] MEDS: lactulose oral liq 20 gm/30 mL UDC 30 GM PO (18:46)
[2025-05-28] VITALS (9 sets, daily range): BP systolic 91–123; BP diastolic 58–73; PULSE 69–91; RESP 16–18; TEMP 36.4–36.8; O2SAT 94–99
[2025-05-28] MEDS: ceFAZolin 2,000 mg SDV 2000 MG IVP ×2 (00:20→07:51)
[2025-05-28] MEDS: polyethylene glycol 3350 Pkt 17 gm PO (04:34)
[2025-05-28 05:24] LABS: Hematocrit 36.1 % (36-47); Hemoglobin 11.30 g/dL (11.27-16.99); Mean Corpuscular HGB Conc 31.3 g/dL (30-55); Mean Corpuscular Hemoglobin 31.1 pg (27-33); Mean Corpuscular Volume 99.4 fl (85-98); Nucleated Red Blood Cells % 0 %; Platelet Count 158 10^3/cmm (157-399); Red Blood Count 3.63 10^6/uL (3.85-5.65); White Blood Count 10.38 10^3/uL (3.29-11.43)
[2025-05-28 05:45] LABS: Magnesium 2.7 mg/dL (1.7-2.3)
[2025-05-28 05:45] LABS: Anion Gap 18.3 (5-19); Blood Urea Nitrogen 18 mg/dL (8-23); Calcium 8.2 mg/dL (8.5-10.5); Carbon Dioxide 19 mmol/L (22-29); Chloride 105 mmol/L (98-107); Glucose 109 mg/dL (65-115); Osmolality Calculated 288 mOsm/kg (285-295); Potassium 4.3 mmol/L (3.5-5.1); Sodium 138 mmol/L (136-145)
--- NOTE | 2025-05-28 07:32 | P.PN_ITS ---
Subjective 2 Subjective: Patient is a very pleasant 74-year-old female seen and examined at bedside on hospital rounds this morning. Patient is laying in bed, states that her pain is much better controlled in her right hip, she had a good bowel movement last night, and no new or worsening symptoms. Patient denies chest pain or shortness of breath, or dizziness this morning. Reviewed patient's vital signs very stable with 115/73 blood pressure this morning, stable hemoglobin 11.30. We had held patient's blood pressure medications last night with soft blood pressures, we will resume if blood pressure remains stable. Patient does have increased creatinine 1.4, encouraged good oral intake of food and fluids this morning. Awaiting physical therapy and Occupational Therapy recommendations, may need SNF level of care. Greatly appreciate orthopedic consultation and management with . All questions and concerns addressed with the patient at the bedside today. Vitals/I&O/Wt Last Vital Signs Temp 98.2 F 05/28/25 07:26 Pulse 91 05/28/25 07:26 Resp 18 05/28/25 07:26 BP 115/73 05/28/25 07:26 Pulse Ox 94 05/28/25 07:26 O2 Del Method Room Air 05/28/25 07:26 05/27/25 05/28/25 05/28/25 22:59 06:59 14:59 Intake Total 1540.5 / 2020.5 Output Total 450 / 460 100 / 560 Balance 1090.5 / 1560.5 -100 / 1460.5 Weight last 48 hrs Weight 51.256 kg Weight 52.163 kg Weight 52.9 kg Weight 49.895 kg Physical Exam 2 Narrative: Patient is a very pleasant 74-year-old female, laying in bed, in no apparent distress. Const: COMMON NORMALS: patient oriented x3 and well nourished HENMT: COMMON NORMALS: normocephalic, Normal external nose present and moist oral mucous membranes HEAD & SCALP: normocephalic NOSE: Normal external nose present Eye: COMMON NORMALS: Equal, round and reactive pupils present PUPIL: Yes Equal, round and reactive pupils present Neck/C-Spine: COMMON NORMALS: no JVD Resp: COMMON NORMALS: normal respiratory effort, No retractions and clear to auscultation bilaterally AUSCULTATION: clear to auscultation bilaterally Cardio: COMMON NORMALS: no JVD, S1 normal heart sound present and S2 normal heart sound present HEART SOUNDS: S1 normal heart sound present and S2 normal heart sound present GI: COMMON NORMALS: Normal to inspection, nondistended, normoactive bowel sounds present Extremity: COMMON NORMALS: no calf tenderness and no pedal edema OTHER: Right hip surgical incisions with no drainage, mild erythema/edema surrounding tissues. Large hematoma right hip. Neuro: COMMON NORMALS: patient oriented x3 and CN's II-XII intact bilaterally Psych: COMMON NORMALS: cooperative, normal affect and speech normal SPEECH: Yes normal speech Skin: NARRATIVE SKIN EXAM: Right hip surgical incisions clean/dry with no noticeable drainage, surrounding tissue with mild erythema/edema, skin warm no s/s of infection. Urinary Catheter Management: Dorantes: Cath Placed During This Visit: yes Reason for Continuing Indwelling Catheter: Required Immobilization for Trauma or Surgery or Anesthesia Urinary Catheter Date of Insertion: 05/26/25 Urinary Catheter Time of Insertion: 12:58 Data 05/28/25 05:00 05/28/25 04:54 A&P Assessment and plan 1. Closed intertrochanteric fracture of right hip: 2. Falls: 3. Hypokalemia: 4. CHF (congestive heart failure): 5. HTN (hypertension): 6. Anxiety: 7. Cardiomyopathy, nonischemic: 8. Chronic migraine without aura, intractable, with status migrainosus: Plan: Closed intertrochanteric fracture of right hip S/p right intramedullary hip nail 05/27/25 Falls - Right hip x-ray; intertrochanteric hip fracture-minimally displaced anterior trochanteric fracture with which extends inferiorly to involve the base of the lesser trochanter without significant displacement of the lesser trochanter - Appreciate continued management with Orthopedic surgeon - Fall precautions - Appreciate PT/OT evaluation and interventions - Multimodal pain control - Greatly appreciate case management consultation and discharge planning, will most likely need swing bed versus SNF at discharge - Bowel regimen - Encourage use of incentive spirometry Hypokalemia, resolved - Admitting K+ 3.3, Mag 2.6, potassium now 4.3 - Replenish as needed - Monitor CHF Cardiomyopathy Pacemaker/defibrillator -Continue cardioprotective medications including Bumex, statin, and carvedilol - BUN 18, Cr 1.4 - BNP 9446 - Trop 18 > 12/2019 echocardiogram; nonischemic cardiomyopathy, EF 10-15% - Monitor I&O - Euvolemic on admission Hypertension Hyperlipidemia - B/p 115/73 - Holding Bumex, carvedilol, and Entresto with low blood pressure, resume when able - Continue Lipitor 40mg nightly Anxiety/Depression PTST - Continue home bupropion 300mg Daily Chronic Migraine - Continue supportive measures VTE PPX: PPI GI PPX: Code Status: Allow natural PDMP PDMP Reviewed: Not Reviewed Attestations 2 Medical Necessity Statement*: Continued interventions inpatient requiring greater than 2 midnights secondary to right hip fracture s/p orthopedic surgical interventions and continued management, with continued PT/OT, and management of complex comorbidities while in the hospital. Coding Level of Care Code 67612 Diagnoses Closed intertrochanteric fracture of right hip S72.141A [place] R29.6 Hypokalemia E87.6 CHF (congestive heart failure) I50.9 HTN (hypertension) I10 Anxiety F41.9 Cardiomyopathy, nonischemic I42.8 Chronic migraine without aura, intractable, with status migrainosus G43.711
[2025-05-28] MEDS: HYDROcodone-acetaminophen 5-325 mg Tablet PO ×3 (07:51→16:01)
--- NOTE | 2025-05-28 09:59 | PC.SOCIAL ---
IMM Update pg 2 of IMM updated and reviewed w/ patient. Copy provided and copy dated, initialed and placed in chart.
[2025-05-28] MEDS: pantoprazole 40 mg SDV IVP (13:25)
--- NOTE | 2025-05-28 16:19 | P.PN_ITS ---
Subjective 2 Subjective: Patient pain controlled up ambulating with physical therapy had pain with ambulation. Vitals/I&O/Wt Last Vital Signs Temp 97.7 F 05/28/25 15:48 Pulse 91 05/28/25 15:48 Resp 17 05/28/25 15:48 BP 105/58 05/28/25 15:48 Pulse Ox 95 05/28/25 15:48 O2 Del Method Room Air 05/28/25 15:48 05/28/25 05/28/25 05/28/25 06:59 14:59 22:59 Output Total 100 / 560 Balance -100 / 1460.5 Weight last 48 hrs Weight 113 lb Weight 115 lb Physical Exam 2 Narrative: Hematoma on hips going down Urinary Catheter Management: Dorantes: Cath Placed During This Visit: yes, but has since been removed by the nurse Reason for Continuing Indwelling Catheter: Decision to DC Catheter Urinary Catheter Date of Insertion: 05/26/25 Urinary Catheter Time of Insertion: 12:58 Date Urinary Catheter Removed: 05/28/25 Time Urinary Catheter Discontinued: 15:30 Data 05/28/25 05:00 05/28/25 04:54 A&P Assessment and plan 1. Closed intertrochanteric fracture of right hip: Postop day #1 right hip nail PDMP PDMP Reviewed: Not Reviewed Attestations 2 Medical Necessity Statement*: Pain control Coding Level of Care Code Acute Code for Chg Fwd Diagnoses Closed intertrochanteric fracture of right hip S72.141A
[2025-05-29 04:00] VITALS: BP 134/63; PULSE 94; RESP 16; TEMP 36.7; O2SAT 94
[2025-05-29 05:19] LABS: Hematocrit 31.0 % (36-47); Hemoglobin 9.40 g/dL (11.27-16.99); Mean Corpuscular HGB Conc 30.3 g/dL (30-55); Mean Corpuscular Hemoglobin 30.6 pg (27-33); Mean Corpuscular Volume 101.0 fl (85-98); Nucleated Red Blood Cells % 0 %; Platelet Count 119 10^3/cmm (157-399); Red Blood Count 3.07 10^6/uL (3.85-5.65); White Blood Count 7.42 10^3/uL (3.29-11.43)
[2025-05-29] MEDS: fluticasone nasal spray 16gm Btl 2 SPRAY INTRANASAL (05:31)
[2025-05-29] MEDS: polyethylene glycol 3350 Pkt 17 gm PO (05:32)
[2025-05-29 05:41] LABS: Anion Gap 14.6 (5-19); Blood Urea Nitrogen 23 mg/dL (8-23); Calcium 8.2 mg/dL (8.5-10.5); Carbon Dioxide 21 mmol/L (22-29); Chloride 106 mmol/L (98-107); Glucose 102 mg/dL (65-115); Osmolality Calculated 288 mOsm/kg (285-295); Potassium 4.6 mmol/L (3.5-5.1); Sodium 137 mmol/L (136-145)
[2025-05-29 07:32] VITALS: BP 135/68; PULSE 64; RESP 18; TEMP 36.5; O2SAT 95
[2025-05-29 08:12] VITALS: RESP 16
[2025-05-29] MEDS: morphine 4 mg/mL SDV 1 mL IVP (08:12)
--- NOTE | 2025-05-29 09:50 | PM.DCS ---
Discharge Providers Date of Admission: 05/26/25 13:04 Date of Discharge: May 29, 2025 Attending Provider at Admission: Tanner Cole MD Attending Provider at Discharge: Sayra Patrick NP Primary Care Provider: Grant Barger Diagnoses at Discharge Discharge Diagnosis 1. Closed intertrochanteric fracture of right hip: Reason for Visit Reason for Visit: fall - right hip pain Brief History: Admission: Lilo Adame is a 74 year old female with pmhx CHF, TIA, PTSD, vertigo, head injury, fractures, sacroiliitis, anxiety, chronic migraine, and nonischemic cardiomyopathy presenting with complaints of right hip pain secondary to fall. This was a mechanical fall after tripping on a rug. In this incident she denies no head injury or loss of consciousness. She was unable to stand. Patient presented to [facility] ED for assessment where imaging revealed a right hip fracture. Orthopedic surgery consulted, Dr. Johnson, recommendations appreciated. Will admit to the hospital service for further evaluation and treatment. Planning for surgery in the AM. In the ED, BP 135/85, HR 69, RR 18, O2 sat 96%, T97.8. CBC unremarkable. Creatinine 1.3, BUN 23. AST/ALT WNL. A1c WNL 5.3. Room air. Urinalysis; 2+ glucose, 1+ leukocytes, no bacteria seen. Right hip x-ray; intertrochanteric hip fracture-minimally displaced anterior trochanteric fracture with which extends inferiorly to involve the base of the lesser trochanter without significant displacement of the lesser trochanter, see full results. Hospital Course Hospital Course Closed intertrochanteric fracture of right hip S/p right intramedullary hip nail 05/27/25 Falls - Right hip x-ray; intertrochanteric hip fracture-minimally displaced anterior trochanteric fracture with which extends inferiorly to involve the base of the lesser trochanter without significant displacement of the lesser trochanter - Appreciate continued management with Orthopedic surgeon - Fall precautions - Appreciate PT/OT evaluation and interventions - Multimodal pain control - Greatly appreciate case management consultation and discharge planning, will most likely need swing bed versus SNF at discharge - Due to being confined to one room at home with limited mobility a bedside commode is ordered at discharge - Bowel regimen - Encourage use of incentive spirometry Hypokalemia, resolved - Admitting K+ 3.3, Mag 2.6, potassium now 4.6 - Replenish as needed - Monitor CHF Cardiomyopathy Pacemaker/defibrillator -Continue cardioprotective medications including Bumex, statin, and carvedilol - Cr 1.5 - BNP 9446 - Trop 18 > 15 - 12/2019 echocardiogram; nonischemic cardiomyopathy, EF 10-15% - Monitor I&O - Euvolemic on admission Hypertension Hyperlipidemia - B/p 115/73 - Holding Bumex, carvedilol, and Entresto with low blood pressure, resume when able - Continue Lipitor 40mg nightly Anxiety/Depression PTST - Continue home bupropion 300mg Daily Chronic Migraine - Continue supportive measures VTE PPX: PPI GI PPX: Code Status: Allow natural Patient has requested discharge home with home health, discharges in stable condition in care of spouse. Case management consultation in coordination of discharge planning greatly appreciated. Patient will follow-up with primary care provider in 1 to 3 days of discharge and with orthopedic surgeon within 1 to 2 weeks of discharge. Discharge instructions and pain medication per orthopedic surgeon. Patient is encouraged to continue use of incentive spirometry, resume home medications as previously prescribed. All questions and concerns addressed to the patient prior to discharge. Physical Exam Narrative: Patient is a very pleasant 74-year-old female, laying in bed, in no apparent distress. Const: COMMON NORMALS: patient oriented x3 and well nourished HENMT: COMMON NORMALS: normocephalic, Normal external nose present and moist oral mucous membranes HEAD & SCALP: normocephalic NOSE: Normal external nose present Eye: COMMON NORMALS: Equal, round and reactive pupils present PUPIL: Yes Equal, round and reactive pupils present Neck/C-Spine: COMMON NORMALS: no JVD Resp: COMMON NORMALS: normal respiratory effort, No retractions and clear to auscultation bilaterally AUSCULTATION: clear to auscultation bilaterally Cardio: COMMON NORMALS: no JVD, S1 normal heart sound present and S2 normal heart sound present HEART SOUNDS: S1 normal heart sound present and S2 normal heart sound present GI: COMMON NORMALS: Normal to inspection, nondistended, normoactive bowel sounds present Extremity: COMMON NORMALS: no calf tenderness and no pedal edema OTHER: Right hip surgical incisions with no drainage, mild erythema/edema surrounding tissues. Large hematoma right hip. Neuro: COMMON NORMALS: patient oriented x3 and CN's II-XII intact bilaterally Psych: COMMON NORMALS: cooperative, normal affect and speech normal SPEECH: Yes normal speech Skin: NARRATIVE SKIN EXAM: Right hip surgical incisions clean/dry with no noticeable drainage, surrounding tissue with mild erythema/edema, skin warm no s/s of infection. Urinary Catheter Management: Dorantes: Cath Placed During This Visit: yes, but has since been removed by the nurse Reason for Continuing Indwelling Catheter: Decision to DC Catheter Urinary Catheter Date of Insertion: 05/26/25 Urinary Catheter Time of Insertion: 12:58 Date Urinary Catheter Removed: 05/28/25 Time Urinary Catheter Discontinued: 15:30 Discharge Data Studies Completed and Pending Completed Studies During Hospitalization Category Date Time Status XR chest 1V portable [id number] Stat Exams 05/26/25 12:14 Completed XR hip RT 2-3V wo/w pel* [id number] Routine Exams 05/27/25 08:32 Completed XR hip RT 2-3V wo/w pel* [id number] Stat Exams 05/26/25 12:02 Completed Pending at discharge Category Date Time Status Complete Blood Count w/Auto AM LABS Lab 05/30/25 04:00 Ordered Radiology Impressions Chest X-Ray 05/26/25 12:14 IMPRESSION: No focal or diffuse airspace disease. Hip/Pelvis X-Ray 05/27/25 08:32 IMPRESSION: Right hip fracture with internal fixation without abnormality. Laboratory Results WBC 7.42 10^3/uL (3.29-11.43) 05/29/25 05:04 RBC 3.07 10^6/uL (3.85-5.65) L 05/29/25 05:04 Hgb 9.40 g/dL (11.27-16.99) L 05/29/25 05:04 Hct 31.0 % (36-47) L 05/29/25 05:04 MCV 101.0 fl (85-98) H 05/29/25 05:04 MCH 30.6 pg (27-33) 05/29/25 05:04 MCHC 30.3 g/dL (30-55) 05/29/25 05:04 RDW 12.9 % (12.1-15.1) 05/29/25 05:04 Plt Count 119 10^3/cmm (157-399) L 05/29/25 05:04 MPV 10.3 fL (7.4-10.4) 05/29/25 05:04 Neut % (Auto) 64.7 % 05/29/25 05:04 Lymph % (Auto) 19.0 % 05/29/25 05:04 [place] % (Auto) 11.9 % 05/29/25 05:04 Eos % (Auto) 3.4 % 05/29/25 05:04 Baso % (Auto) 0.7 % 05/29/25 05:04 Neut # (Auto) 4.81 10^3/uL (1.8-7.7) 05/29/25 05:04 Lymph # (Auto) 1.4 10^3/uL (0.8-4.8) 05/29/25 05:04 [place] # (Auto) 0.9 10^3/uL (0.2-0.9) 05/29/25 05:04 Eos # (Auto) 0.3 10^3/uL (0.0-0.8) 05/29/25 05:04 Baso # (Auto) 0.1 10^3/uL (0.0-0.1) 05/29/25 05:04 Nucleated RBC % (auto) 0 % 05/29/25 05:04 Nucleated RBCs # 0.0 /100WBC 05/29/25 05:04 Sodium 137 mmol/L (136-145) 05/29/25 05:04 Potassium 4.6 mmol/L (3.5-5.1) 05/29/25 05:04 Chloride 106 mmol/L (98-107) 05/29/25 05:04 Carbon Dioxide 21 mmol/L (22-29) L 05/29/25 05:04 Anion Gap 14.6 (5-19) 05/29/25 05:04 BUN 23 mg/dL (8-23) 05/29/25 05:04 Creatinine 1.5 mg/dL (0.5-0.9) H 05/29/25 05:04 GFR Calculation Not Reportable 05/29/25 05:04 Glucose 102 mg/dL (65-115) 05/29/25 05:04 Estimat Average Glucose 105 05/26/25 12:27 Hemoglobin A1c 5.3 % (4.0-6.0) 05/26/25 12:27 Calculated Osmolality 288 mOsm/kg (285-295) 05/29/25 05:04 Calcium 8.2 mg/dL (8.5-10.5) L 05/29/25 05:04 Magnesium 2.7 mg/dL (1.7-2.3) H 05/28/25 05:00 Total Bilirubin 0.3 mg/dL (0.15-1.2) 05/26/25 12: AST 23 U/L (0-32) 05/26/25 12:27 ALT 23 U/L (0-33) 05/26/25 12:27 Alkaline Phosphatase 98 U/L (35-105) 05/26/25 12:27 Total Protein 7.1 g/dL (6.6-8.7) 05/26/25 12: Albumin 4.2 g/dL (3.5-5.2) 05/26/25 12: Globulin 2.9 g/dL (1.3-4.6) 05/26/25 12:27 Urine Color Yellow (Yellow) 05/26/25 13:06 Urine Appearance Clear (CLEAR) 05/26/25 13:06 Urine pH 6.0 (5-7) 05/26/25 13:06 Ur Specific Cameron 1.008 (1.005-1.030) 05/26/25 13:06 Urine Protein Negative (Negative) 05/26/25 13:06 Urine Glucose (UA) 2+ (Normal) H 05/26/25 13:06 Urine Ketones Negative (Negative) 05/26/25 13:06 Urine Blood Negative (Negative) 05/26/25 13:06 Urine Nitrate Negative (Negative) 05/26/25 13:06 Urine Bilirubin Negative (Negative) 05/26/25 13:06 Urine Urobilinogen 0.2 mg/dL (Negative) 05/26/25 13:06 Ur Leukocyte Esterase 1+ (Negative) A 05/26/25 13:06 Urine RBC 0-2 /hpf (0-2) 05/26/25 13:06 Urine WBC 0-5 /hpf (0-5) 05/26/25 13:06 Ur Squamous Epith Cells 0-5 /hpf (0-5) 05/26/25 13:06 Amorphous Sediment Not Reportable 05/26/25 13:06 Urine Bacteria None seen /hpf (NONE) 05/26/25 13:06 Hyaline Casts 2.46 /lpf 05/26/25 13:06 Blood Type A Positive 05/27/25 10:09 Rho(D) Type Rh positive 05/27/25 10:09 Antibody Screen Negative 05/27/25 10:09 Vitals Last Vital Signs Temp 97.7 F 05/29/25 07:32 Pulse 64 05/29/25 07:32 Resp 16 05/29/25 08:12 BP 135/68 05/29/25 07:32 Pulse Ox 95 05/29/25 07:32 O2 Del Method Room Air 05/29/25 07:32 Discharge Plan Discharge Patient Disposition: Home Health Service Condition: Stable Prescriptions: New hydrocodone-acetaminophen 5-325 mg tablet 1 - 2 tab PO .Q4-6H Qty: 40 0RF Continued (DME) Carbon fiber Yes Qty: 1 0RF Rx Instructions: As directed potassium chloride 10 mEq capsule, extended release 10 meq PO BID Qty: 60 3RF Patient Comments: patient states she takes 1 in the am and 2 in the pm promethazine 12.5 mg tablet 12.5 mg PO Q6H PRN (Reason: Nausea) bupropion HCl 300 mg tablet extended release 24 hr 300 mg PO QAM carvedilol 6.25 mg tablet 6.25 mg PO DAILY aspirin [Adult Aspirin Regimen] 81 mg tablet,delayed release (DR/EC) 81 mg PO DAILY bumetanide 0.5 mg tablet 0.5 mg PO DAILY Entresto 24-26 mg tablet 1 tab PO BID atorvastatin 40 mg tablet 40 mg PO BEDTIME cyclobenzaprine 10 mg tablet 10 mg PO TID PRN (Reason: Spasms) famotidine 10 mg Tablet 10 mg PO BID meclizine 12.5 mg Tablet 12.5 mg PO TID PRN (Reason: dizziness or nausea ) spironolactone 25 mg tablet 25 mg PO DAILY Patient Comments: Patient had not started yet pantoprazole 20 mg tablet,delayed release (DR/EC) 20 mg PO DAILY nitroglycerin 0.4 mg tablet, sublingual 0.4 mg sublingual PRN PRN (Reason: Chest Pain) fluticasone propionate 50 mcg/actuation spray,suspension 2 spray INTRANASAL DAILY Jardiance 10 mg tablet 10 mg PO QAM gamma-aminobutyric acid 250 mg Capsule 250 mg PO BEDTIME trazodone 50 mg tablet 50 - 100 mg PO BEDTIME Discontinued acetaminophen [Tylenol 8 Hour] 650 mg Tablet Extended Release 650 - 1,300 mg PO Q8H PRN (Reason: Fever Or Pain) Discharge Order = DC NOW: Discharge Order (Routine); Ordered 05/29/25 Ordered By: John Johnson Other Ambulatory Orders: DME: [employer] (Order) Location: None Selected Ordered By: Sayra Patrick Referrals: [facility] [Outside] John Johnson DO [Physician, Orthopedics] - 06/12/25 1:45 pm Referral Note: Grant Barger [Primary Care Provider, Family Practice] Discharge Diet: Cardiac Discharge Activity: Limit activity as instructed Patient Instructions: Hydrocodone/Acetaminophen (By mouth) (Vicodin, Barnum), Acute Wound Care (DC), Precautions after Total Joint Replacement Surgery (DC), Opioid Safety, Post Anesthesia Care, Patient Portal & Earnestine Instructions Activity Restrictions/Additional Instructions: You are being discharged from the hospital today during which time you have been under the care of Dr. Johnson. You had a hip fracture. You were treated for this injury with intramedullary nail. You may resume you normal diet (including any special diets as directed by your primary doctor) as well as your home medications. You should follow up with you primary doctor if you have any questions regarding medication you took prior to your stay in the hospital. You may take your pain medication as prescribed. After the first few days, take your pain medication as needed. Do not drive or drink alcohol while taking your pain medication. Your injury may increase your risk of developing a blood clot,or DVT, in your arm or leg. This could potentially dislodge and travel to your lungs and become a life threatening condition called apulmonary embolus,or PE. You have been prescribed aspirin to be taken to prevent this. Frequent movement of the feet will also help prevent this from occurring. If you develop any new or worsening cough, chestpain, bloody sputum or shortness of breath, call 911 or go to the EmergencyRoom. Always keep your surgical incision/dressing clean and dry. If you experience increasing pain at your incision site, redness, swelling, increasing discharge, foul odors, or fevers (greater than 100.4), night sweats or chills you should call the office at the above number. If you feel this is an emergency you should be evaluated in the Emergency Department of a nearby hospital. Orthopedic Patient Instructions Summary: Weight Bearing: Weight-bear as tolerated Activity: As tolerated. Diet: Regular. Wound Care: Keep dressing clean and dry. Anticoagulation: Aspirin Pain Medication: Take only as needed. Ice, rest and elevation will be of great benefit. Please plan to follow-up [facility] Dr Johnson in 2 weeks. You will need to call the clinic [phone] to schedule this visit. Thank you far allowing me to participate in your care. Do not hesitate to call the office with any questions or concerns. Discharge Attestations Time Spent in Discharge Care*: greater than 30 min Quality Metrics Clinical Quality Measures [ No reported AMI, CVA or VTE this stay] Coding Level of Care Code 69107 Diagnoses Closed intertrochanteric fracture of right hip S72.141A
[2025-05-29 10:54] VITALS: BP 117/80; PULSE 86; RESP 18; TEMP 36.4; O2SAT 96
[2025-05-29] MEDS: HYDROcodone-acetaminophen 5-325 mg Tablet PO (13:54)
[2025-05-29] MEDS: pantoprazole 40 mg SDV IVP (13:54)
== END 2025-05-29 14:30 | disposition home health service (06) | DRG 481 ==
LOC: ER 12:23 → MEDSURG 13:05
PROVIDERS: Clinical Nurse Specialist Acute Care; Orthopaedic Surgery; Admitting Provider Family Medicine; Emergency Provider Family Medicine; PCP Family Medicine; Visit Provider Registered Nurse
PROC: 0QS636Z Reposition Right Upper Femur with Intramedullary Internal Fixation Device, Percutaneous Approach (ICD-10-PCS; CPT 27245; principal; 2025-05-27 07:00)
DX: S72.141A Displaced intertrochanteric fracture of right femur, initial encounter for closed fracture (principal); I42.8 Other cardiomyopathies; I50.20 Unspecified systolic (congestive) heart failure; W01.0XXA Fall on same level from slipping, tripping and stumbling without subsequent striking against object, initial encounter; I11.0 Hypertensive heart disease with heart failure; F43.10 Post-traumatic stress disorder, unspecified; F41.9 Anxiety disorder, unspecified; G43.719 Chronic migraine without aura, intractable, without status migrainosus; E87.6 Hypokalemia; E78.5 Hyperlipidemia, unspecified; F32.A Depression, unspecified; Z79.82 Long term (current) use of aspirin; Z86.73 Personal history of transient ischemic attack (TIA), and cerebral infarction without residual deficits; Z95.810 Presence of automatic (implantable) cardiac defibrillator
CPT/HCPCS: 36415; 51702; 71045; 73502; 76000; 80048; 80053; 81001; 83036; 83735; 85025; 86850; 86900; 93005; 96361; 96374; 96375; 97110; 97116; 97161; 97167; 97530; 97535; 99285; A4216; C1713; J0690; J1171; J1885; J2270; J2470; J2704; J2765; J3010; J7030; J9999

== ENCOUNTER → 2025-06-12 09:40 | Outpatient (BNVA) | payer MEDICARE, OTHER, SELFPAY | PROVIDERS: PCP Family Medicine; Visit Provider Specialist | DX: G43.711 Chronic migraine without aura, intractable, with status migrainosus (principal); S72.141A Displaced intertrochanteric fracture of right femur, initial encounter for closed fracture; X58.XXXA Exposure to other specified factors, initial encounter | CPT/HCPCS: 64615; 73502; 99024; J0585; J9999 ==